=== PATIENT | female | born 1930 | race Hispanic/Latino ===

== ENCOUNTER 2018-05-05 08:29 | Inpatient (IN) | payer MEDICARE, BC ==
[2018-05-05 08:52] VITALS: BMI 24.1
[2018-05-05 10:28] LABS: BASO # 0.01 K/mm3 (0.0-2.0); BASO % 0.1 % (0.0-3.0); GRAN # 14.46 (1.4-6.5); GRAN % 90.4 % (50.0-68.0); HEMOGLOBIN 10.3 g/dL (12.0-16.0); LYMPH # 0.7 (1.2-3.4); LYMPH % 4.6 % (22.0-35.0); MEAN CELL VOLUME 86.2 fl (80.0-105.0); MEAN CORPUSCULAR HEMOGLOBIN 29.7 pg (25.0-35.0); MEAN CORPUSCULAR HGB CONC 34.4 g/dl (31.0-37.0); MONO # 0.8 (0.1-0.6); MONO % 4.9 % (1.0-6.0); PLATELET COUNT 203 10^3/uL (120.0-450.0); RBC 3.47 10^6/uL (3.5-6.1); RED CELL DISTRIBUTION WIDTH 13.9 % (11.5-14.5)
[2018-05-05 10:39] LABS: ALB/GLOB RATIO 1.1 (1.1-1.8); ALBUMIN 3.7 g/dL (3.0-4.8); ALT/SGPT 25 U/L (7-56); AST/SGOT 38 U/L (14-36); BLOOD UREA NITROGEN 26 mg/dL (7-21); CALCIUM 9.1 mg/dL (8.4-10.5); GFR AFRICAN-AMERICAN > 60; GFR NON-AFRICAN AMERICAN > 60; LIPASE 24 U/L (23-300)
[2018-05-05 10:53] LABS: LYMPHOCYTE 5 % (22.0-35.0); MONOCYTE 6 % (1.0-6.0); NEUTROPHIL 89 % (50.0-70.0)
[2018-05-05 10:54] LABS: PLATELET ESTIMATE NORMAL (NORMAL)
--- NOTE | 2018-05-05 11:16 | RAD ---
HISTORY: pneumonia COMPARISON: 08/20/2016. FINDINGS: LUNGS: There are low lung volumes. PLEURA: There is a small left pleural effusion, no pneumothorax apparent. CARDIOVASCULAR: There is moderate cardiomegaly. 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 VISUALIZED UPPER ABDOMEN: Normal. OTHER FINDINGS: None. IMPRESSION: Moderate cardiomegaly and small left pleural effusion. Left lower lobe airspace disease cannot be excluded. Follow-up is advised. Low lung volumes may be related to poor inspiratory effort.
[2018-05-05] MEDS ORDERED: Iohexol 350 MG/100 ML VIAL ONE (11:20)
--- NOTE | 2018-05-05 11:51 | CT ---
PROCEDURE: CT HEAD WITHOUT CONTRAST. HISTORY: Altered mental status COMPARISON: 09/30/2015. TECHNIQUE: Axial computed tomography images were obtained through the head/brain without intravenous contrast. Radiation dose: Total exam DLP = 950.41 mGy-cm. This CT exam was performed using one or more of the following dose reduction techniques: Automated exposure control, adjustment of the mA and/or kV according to patient size, and/or use of iterative reconstruction technique. FINDINGS: HEMORRHAGE: No intracranial hemorrhage. BRAIN: There are moderate chronic microangiopathic changes. There is no mass, mass effect or abnormal extra-axial fluid collection. There are coarse atherosclerotic calcifications in the cavernous carotid arteries. VENTRICLES: There is mild age-related global parenchymal volume loss and proportionate enlargement of the ventricles and cortical sulci. CALVARIUM: The skull base and calvarium are normal. PARANASAL SINUSES: Predominantly clear. MASTOID AIR CELLS: Predominantly clear. OTHER FINDINGS: None. IMPRESSION: No acute intracranial abnormality. Moderate chronic microangiopathic changes and moderate age-related global parenchymal volume loss.
--- NOTE | 2018-05-05 11:58 | ED PDOC ---
Arrival/HPI - General Chief Complaint: Abdominal Pain Time Seen by Provider: 05/05/18 09:21 Past Medical History - Infectious Disease Hx of Infectious Diseases: None - Tetanus Immunization Tetanus Immunization: Unknown - Cardiac Hx Cardiac Disorders: Yes Hx Hypertension: Yes - Pulmonary Hx Respiratory Disorders: No - Neurological Hx Neurological Disorder: Yes Hx Dementia: Yes - HEENT Hx HEENT Disorder: No - Renal Hx Renal Disorder: No - Endocrine/Metabolic Hx Endocrine Disorders: Yes Hx Diabetes Mellitus Type 2: Yes - Hematological/Oncological Hx Blood Disorders: No - Integumentary Hx Dermatological Disorder: No - Musculoskeletal/Rheumatological Hx Musculoskeletal Disorders: Yes Hx Falls: Yes Hx Unsteady Gait: Yes - Gastrointestinal Hx Gastrointestinal Disorders: No - Genitourinary/Gynecological Hx Genitourinary Disorders: Yes Hx Incontinence: Yes - Psychiatric Hx Psychophysiologic Disorder: No Hx Substance Use: No - Surgical History Other/Comment: left hip surg. - Anesthesia Hx Anesthesia Reactions: No Hx Malignant Hyperthermia: No - Suicidal Assessment Feels Threatened In Home Enviroment: No Family/Social History Family/Social History: No Known Family HX Smoking Status: Never Smoked Hx Alcohol Use: No Hx Substance Use: No Hx Substance Use Treatment: No Allergies/Home Meds Allergies/Adverse Reactions: Allergies Tetanus Vaccines and Toxoid Adverse Reaction (Verified 05/05/18 08:52) ITCHING Home Medications: Home Meds Medication Instructions Recorded Confirmed Metformin HCl [Glucophage] 500 mg PO BID 08/20/16 05/05/18 Amlodipine Besylate/Benazepril 1 cap PO DAILY 08/21/16 05/05/18 [Amlodipine-Benazepril 2.5-10] Physical Exam Vital Signs Temp Pulse Resp BP Pulse Ox 05/05/18 17:35 100.1 F H 83 19 119/78 98 05/05/18 15:27 101.0 F H 05/05/18 14:18 101.0 F H 05/05/18 10:38 100.5 F H 05/05/18 09:57 99.0 F 80 18 117/44 L 93 L Medical Decision Making ED Course and Treatment: 05/05/18 11:57 i discussed with the daughter prior to CT with regard to importance of IV contrast and it was agreed to proceed with IV contrast. 05/05/18 18:03 late note: pain meications were refused by the daughter despite offering pain medications. throughout the Emergency department course the patient did not appear in distress and only intermittenly exhibiting she was in pain at brief moments. the daughter, throughout the Emergency department course, was frequently disruptive to care plan and refusing tests at times. daughter was informed of all diagnostic data and plan. 05/05/18 18:08 see resident note for further details - Lab Interpretations Lab Results: 05/05/18 10:20 05/05/18 10:20 Lab Results 05/05/18 10:20: Sodium 149 H, Potassium 3.0 L, Chloride 110 H, Carbon Dioxide 27 , Anion Gap 15, BUN 26 H, Creatinine 0.7, Est GFR ( Amer) > 60, Est GFR ( Non-Af Amer) > 60, Random Glucose 233 H, Calcium 9.1, Magnesium 1.9, Total Bilirubin 1.4 H, AST 38 H, ALT 25, Alkaline Phosphatase 116, Total Protein 7.2, Albumin 3.7, Globulin 3.5, Albumin/Globulin Ratio 1.1, Lipase 24 05/05/18 10:20: WBC 16.0 H D, RBC 3.47 L, Hgb 10.3 L, Hct 29.9 L, MCV 86.2, MCH 29.7, MCHC 34.4, RDW 13.9, Plt Count 203, MPV 9.0, Gran % 90.4 H, Lymph % (Auto ) 4.6 L, Baxter % (Auto) 4.9, Eos % (Auto) 0.0 L, Baso % (Auto) 0.1, Gran # 14.46 H, Lymph # (Auto) 0.7 L, [place] # (Auto) 0.8 H, Eos # (Auto) 0.0, Baso # (Auto) 0.01, Neutrophils % (Manual) 89 H, Lymphocytes % (Manual) 5 L, Monocytes % ( Manual) 6, Platelet Evaluation Normal - RAD Interpretation Radiology Orders: 05/05/18 10:23 HEAD W/O CONTRAST [CT] Stat 05/05/18 10:34 X-RAY [CHEST PORTABLE] [RAD] Stat 05/05/18 10:35 ABDOMEN & PELVIS [ABD & PELVIS IV CONTRAST ONLY] [CT] Stat 05/05/18 12:24 FEMUR MIN 2 VIEWS RT [RAD] Stat 05/05/18 13:12 LS SPINE AP/LAT [RAD] Stat 05/05/18 13:13 THORACIC SPINE [DORSAL (THORACIC) SPINE] [RAD] Stat - Medication Orders Current Medication Orders: Acetaminophen (Tylenol 650 Mg Supp) 650 mg RC Q4H PRN PRN Reason: Fever >100.4 F Heparin Sodium (Porcine) (Heparin) 5,000 units SC Q12 MIHAI PRN Reason: Protocol Lactated Ringer's (Lactated Ringer's) 1,000 mls @ 100 mls/hr IV .Q10H MIHAI Last Admin: 05/05/18 16:48 Dose: 100 mls/hr eMAR Start Stop Document 05/05/18 16:48 [email or web address] (Rec: 05/05/18 16:48 [email or web address] [id number]) Intravenous Solution Start Date 05/05/18 Start Time 16:48 Azithromycin (Zithromax 500mg In Ns) 500 mg in 250 mls @ 167 mls/hr IVPB DAILY MIHAI PRN Reason: Protocol Potassium Chloride (Potassium Chloride 10 Meq/100 Ml) 10 meq in 100 mls @ 50 mls/hr IVPB Q2H MIHAI Stop: 05/05/18 23:59 Last Admin: 05/05/18 17:31 Dose: 50 mls/hr eMAR Start Stop Document 05/05/18 17:31 [email or web address] (Rec: 05/05/18 17:31 [email or web address] [id number]) Intravenous Solution Start Date 05/05/18 Start Time 17:31 End Date 05/05/18 Insulin Human Regular (Humulin R Low) 0 units SC ACHS MIHAI PRN Reason: Protocol Last Admin: 05/05/18 17:18 Dose: 2 units Comments: fs 206 MAR Blood Glucose Document 05/05/18 17:18 [email or web address] (Rec: 05/05/18 17:23 [email or web address] [id number]) Blood Glucose Finger Stick Blood Glucose (70-120) 206 Subcutaneous Administrations Document 05/05/18 17:18 [email or web address] (Rec: 05/05/18 17:23 [email or web address] [id number]) Injection Site MAR Injection Site Left Abdomen Charges for Administration # of Subcutaneous Administrations 1 Pantoprazole Sodium (Protonix Inj) 40 mg IVP DAILY MIHAI Discontinued Medications Acetaminophen (Tylenol 650 Mg Supp) 650 mg RC STAT STA Stop: 05/05/18 14:21 Last Admin: 05/05/18 15:27 Dose: 650 mg MAR Pain/Vitals Document 05/05/18 15:27 [email or web address] (Rec: 05/05/18 15:27 [email or web address] [id number]) Vitals Temperature (97.6 F-99.6 F) 101.0 F Temperature Source Rectal Sodium Chloride (Sodium Chloride 0.9%) 1,000 mls @ 999 mls/hr IV .Q1H1M STA Stop: 05/05/18 13:53 Last Admin: 05/05/18 15:26 Dose: 999 mls/hr eMAR Start Stop Document 05/05/18 15:26 [email or web address] (Rec: 05/05/18 15:26 [email or web address] [id number]) Intravenous Solution Start Date 05/05/18 Start Time 15:26 End Date 05/05/18 Ceftriaxone Sodium (Rocephin 1 Gram Ivpb) 1 gm in 100 mls @ 100 mls/hr IVPB STAT STA PRN Reason: Protocol Stop: 05/05/18 15:14 Last Admin: 05/05/18 15:26 Dose: 100 mls/hr eMAR Start Stop Document 05/05/18 15:26 [email or web address] (Rec: 05/05/18 15:26 [email or web address] [id number]) Intravenous Solution Start Date 05/05/18 Start Time 15:26 Disposition/Present on Arrival - Present on Arrival Any Indicators Present on Arrival: No History of DVT/PE: No History of Uncontrolled Diabetes: No Urinary Catheter: No History of Decub. Ulcer: No History Surgical Site Infection Following: None - Disposition Have Diagnosis and Disposition been Completed?: Yes Diagnosis: Fever, Leukocytosis, Femur fracture, right, Compression fracture, Cholelithiases Disposition: HOSPITALIZED Disposition Time: 18:07 Patient Problems: Current Active Problems Problem Status Onset Cholelithiases Acute Compression fracture Acute Femur fracture, right Acute Fever Acute Leukocytosis Acute Condition: STABLE
--- NOTE | 2018-05-05 12:30 | ED PDOC ---
Arrival/HPI - History of Present Illness Symptom Onset: Sudden Symptom Course: Unchanged - General Chief Complaint: Abdominal Pain Time Seen by Provider: 05/05/18 09:21 - History of Present Illness Narrative History of Present Illness (Text): 87 year old female presents with abdominal pain that started Wednesday. She is an elderly women with dementia who was not able to provide the history. History was provided by her daughter. Her daughter reports that patient was at baseline this past , which is AAOx1 but responsive to people around her. Wednesday, patient started to complain of abdominal pain and her right leg was positioned in an awkward position. Patient cannot converse or follow commands. 05/05/18 12:36 (Ele Cordova) Past Medical History - Provider Review Nursing Documentation Reviewed: Yes - Infectious Disease Hx of Infectious Diseases: None - Tetanus Immunization Tetanus Immunization: Unknown - Cardiac Hx Cardiac Disorders: Yes Hx Hypertension: Yes - Pulmonary Hx Respiratory Disorders: No - Neurological Hx Neurological Disorder: Yes Hx Dementia: Yes - HEENT Hx HEENT Disorder: No - Renal Hx Renal Disorder: No - Endocrine/Metabolic Hx Endocrine Disorders: Yes Hx Diabetes Mellitus Type 2: Yes - Hematological/Oncological Hx Blood Disorders: No - Integumentary Hx Dermatological Disorder: No - Musculoskeletal/Rheumatological Hx Musculoskeletal Disorders: Yes Hx Falls: Yes Hx Unsteady Gait: Yes - Gastrointestinal Hx Gastrointestinal Disorders: No - Genitourinary/Gynecological Hx Genitourinary Disorders: Yes Hx Incontinence: Yes - Psychiatric Hx Psychophysiologic Disorder: No Hx Substance Use: No - Surgical History Other/Comment: left hip surg. - Anesthesia Hx Anesthesia Reactions: No Hx Malignant Hyperthermia: No - Suicidal Assessment Feels Threatened In Home Enviroment: No Family/Social History - Physician Review Nursing Documentation Reviewed: Yes Family/Social History: Unknown Family HX Smoking Status: Never Smoked Hx Alcohol Use: No Hx Substance Use: No Hx Substance Use Treatment: No Allergies/Home Meds Allergies/Adverse Reactions: Allergies Tetanus Vaccines and Toxoid Adverse Reaction (Verified 05/05/18 08:52) ITCHING Home Medications: Home Meds Medication Instructions Recorded Confirmed Metformin HCl [Glucophage] 500 mg PO BID 08/20/16 08/20/16 Amlodipine Besylate/Benazepril 1 cap PO DAILY 08/21/16 08/21/16 [Amlodipine-Benazepril 2.5-10] Review of Systems - Review of Systems Systems not reviewed;Unavailable: Dementia Physical Exam - Physical Exam Physical Exam Limitations: Altered Mental Status, Uncooperative Temperature: Febrile Blood Pressure: Normal Pulse: Regular Respiratory Rate: Normal Appearance: Positive for: Ill-Appearing, Uncomfortable Pain Distress: Moderate Mental Status: Positive for: Confused, Agitated - Systems Exam Head: Present: Atraumatic Pupils: Present: PERRL Nose (External): Present: Atraumatic Respiratory/Chest: Present: Clear to Auscultation Cardiovascular: Present: Regular Rate and Rhythm, Normal S1, S2 Abdomen: Present: Tenderness Upper Extremity: No: Normal ROM (stiff upper extremities) Lower Extremity: No: Normal ROM (lower extremities are stiff. right femur is positioned inward) Neurological: Present: CN II-XII Intact. No: Speech Normal Skin: Present: Warm, Dry Vital Signs Temp Pulse Resp BP Pulse Ox 05/05/18 15:27 101.0 F H 05/05/18 14:18 101.0 F H 05/05/18 10:38 100.5 F H 05/05/18 09:57 99.0 F 80 18 117/44 L 93 L Medical Decision Making ED Course and Treatment: 05/05/18 14:13 admti accepted by hospitalist, patient to be admitted for possible traumatic sacrum fracture. patient found to be febrile and sepsis workup initiated. it has been extremely difficult getting a urine sample in the Emergency department and the daughter at bedside has even refused straight catheter at one point but finally agreed to proceed with straight cath. Despite difficulty obtaining urine , it may be best to empirically tx for suspected UTI, especially in light of fever and leukocytosis. 05/05/18 14:[address] Jacobsen for consult and will see patient at bedside. (Sulaiman Terrazas) Impression: 87 year old female presents with abdominal pain for the past 4 days. Assessment: Pneumonia vs. UTI vs. diverticulitis vs. other etiology of infection. Possible hip fracture Plan: CXR: Moderate cardiomegaly and small left pleural effusion. Left lower lobe airspace disease cannot be excluded. Follow-up is advised. Low lung volumes may be related to poor inspiratory effort. Femur X ray 2 views: Head CT: No acute intracranial abnormality. Moderate chronic microangiopathic changes and moderate age-related global parenchymal volume loss. Abdominal CT: 1. Bilateral sacral ala fractures are identified with presacral edema. 2. No bowel or urinary tract obstruction, free intrarenal gas or ascites. 3. Cholelithiasis. 4. Bilateral renal cysts appear benign. CBC: Hgb: 10.3 Hct: 29.9 CMP: NA: 149, K: 3.0: will replete with 50mg IVP Potassium Blood culture: Urine culture: Patient will be admitted to Dr. Wolf's service. 05/05/18 12:49 05/05/18 12:50 05/05/18 13:01 05/05/18 15:53 (Ele Cordova) - Lab Interpretations Lab Results: 05/05/18 10:20 05/05/18 10:20 Lab Results 05/05/18 10:20: Sodium 149 H, Potassium 3.0 L, Chloride 110 H, Carbon Dioxide 27 , Anion Gap 15, BUN 26 H, Creatinine 0.7, Est GFR ( Amer) > 60, Est GFR ( Non-Af Amer) > 60, Random Glucose 233 H, Calcium 9.1, Magnesium 1.9, Total Bilirubin 1.4 H, AST 38 H, ALT 25, Alkaline Phosphatase 116, Total Protein 7.2, Albumin 3.7, Globulin 3.5, Albumin/Globulin Ratio 1.1, Lipase 24 05/05/18 10:20: WBC 16.0 H D, RBC 3.47 L, Hgb 10.3 L, Hct 29.9 L, MCV 86.2, MCH 29.7, MCHC 34.4, RDW 13.9, Plt Count 203, MPV 9.0, Gran % 90.4 H, Lymph % (Auto ) 4.6 L, [place] % (Auto) 4.9, Eos % (Auto) 0.0 L, Baso % (Auto) 0.1, Gran # 14.46 H, Lymph # (Auto) 0.7 L, [place] # (Auto) 0.8 H, Eos # (Auto) 0.0, Baso # (Auto) 0.01, Neutrophils % (Manual) 89 H, Lymphocytes % (Manual) 5 L, Monocytes % ( Manual) 6, Platelet Evaluation Normal - RAD Interpretation Radiology Orders: 05/05/18 10:23 HEAD W/O CONTRAST [CT] Stat 05/05/18 10:34 X-RAY [CHEST PORTABLE] [RAD] Stat 05/05/18 10:35 ABDOMEN & PELVIS [ABD & PELVIS IV CONTRAST ONLY] [CT] Stat 05/05/18 12:24 FEMUR MIN 2 VIEWS RT [RAD] Stat 05/05/18 13:12 LS SPINE AP/LAT [RAD] Stat 05/05/18 13:13 THORACIC SPINE [DORSAL (THORACIC) SPINE] [RAD] Stat - Medication Orders Current Medication Orders: Acetaminophen (Tylenol 650 Mg Supp) 650 mg RC Q4H PRN PRN Reason: Fever >100.4 F Heparin Sodium (Porcine) (Heparin) 5,000 units SC Q12 MIHAI PRN Reason: Protocol Lactated Ringer's (Lactated Ringer's) 1,000 mls @ 100 mls/hr IV .Q10H MIHAI Azithromycin (Zithromax 500mg In Ns) 500 mg in 250 mls @ 167 mls/hr IVPB DAILY MIHAI PRN Reason: Protocol Insulin Human Regular (Humulin R Low) 0 units SC ACHS MIHAI PRN Reason: Protocol Pantoprazole Sodium (Protonix Inj) 40 mg IVP DAILY MIHAI Discontinued Medications Acetaminophen (Tylenol 650 Mg Supp) 650 mg RC STAT STA Stop: 05/05/18 14:21 Last Admin: 05/05/18 15:27 Dose: 650 mg MAR Pain/Vitals Document 05/05/18 15:27 [email or web address] (Rec: 05/05/18 15:27 [email or web address] [id number]) Vitals Temperature (97.6 F-99.6 F) 101.0 F Temperature Source Rectal Sodium Chloride (Sodium Chloride 0.9%) 1,000 mls @ 999 mls/hr IV .Q1H1M STA Stop: 05/05/18 13:53 Last Admin: 05/05/18 15:26 Dose: 999 mls/hr eMAR Start Stop Document 05/05/18 15:26 [email or web address] (Rec: 05/05/18 15:26 [email or web address] [id number]) Intravenous Solution Start Date 05/05/18 Start Time 15:26 End Date 05/05/18 Ceftriaxone Sodium (Rocephin 1 Gram Ivpb) 1 gm in 100 mls @ 100 mls/hr IVPB STAT STA PRN Reason: Protocol Stop: 05/05/18 15:14 Last Admin: 05/05/18 15:26 Dose: 100 mls/hr eMAR Start Stop Document 05/05/18 15:26 [email or web address] (Rec: 05/05/18 15:26 [email or web address] [id number]) Intravenous Solution Start Date 05/05/18 Start Time 15:26 - PA / MARINE PHOTOGRAPHER / Resident Statement / has reviewed & agrees with the documentation as recorded. / has examined the patient and agrees with the treatment plan. Disposition/Present on Arrival - Present on Arrival Any Indicators Present on Arrival: No History of DVT/PE: No History of Uncontrolled Diabetes: No Urinary Catheter: No History of Decub. Ulcer: No History Surgical Site Infection Following: None - Disposition Have Diagnosis and Disposition been Completed?: Yes Disposition Time: 15:53 Patient Plan: Admission - Disposition Diagnosis: Infection Patient Problems: Current Active Problems Problem Status Onset Infection Acute Condition: STABLE
--- NOTE | 2018-05-05 12:52 | CT ---
PROCEDURE: CT Abdomen and Pelvis with contrast HISTORY: pain COMPARISON: Abdomen pelvis CT with contrast 09/30/2015. TECHNIQUE: Contrast dose: Omnipaque 350, 100 cc Radiation dose: Total exam DLP = 686.09 mGy-cm. This CT exam was performed using one or more of the following dose reduction techniques: Automated exposure control, adjustment of the mA and/or kV according to patient size, and/or use of iterative reconstruction technique. FINDINGS: History motion degrades quality this examination including lung bases through abdomen segments. Cardiomegaly is reiterated. Trace pericardial thickening or effusion evident. No pleural effusion bilaterally. [id number] hiatal hernia reiterated. LOWER THORAX: Unremarkable. LIVER: Unremarkable. No gross lesion or ductal dilatation. GALLBLADDER AND BILE DUCTS: Cholelithiasis with gallbladder otherwise unremarkable. PANCREAS: Unremarkable. No gross lesion or ductal dilatation. SPLEEN: Unremarkable. ADRENALS: Unremarkable. No mass. KIDNEYS AND URETERS: No obstructive uropathy or definite solid enhancing mass. Bilateral renal cysts are identified with one in each kidney. 1.8 cm cyst is seen in the midpole left kidney with a 2.4 cm cyst at the lower pole right kidney. VASCULATURE: Unremarkable. No aortic aneurysm. BOWEL: Stomach is collapsed and not well evaluated. No bowel obstruction appreciable. Moderate retained fecal material is seen at the proximal half of the colon. With the large-bowel otherwise collapse. APPENDIX: Normal appendix. PERITONEUM: Unremarkable. No free fluid. No free air. LYMPH NODES: Unremarkable. No enlarged lymph nodes. BLADDER: Unremarkable. REPRODUCTIVE: Unremarkable. BONES: Bilateral sacral ala fractures were advanced than those that would be expected for insufficiency fractures. Mild presacral edema is related. Diffuse osteopenia suggests advanced osteoporosis which may make the patient prone to fractures. OTHER FINDINGS: None. IMPRESSION: 1. Bilateral sacral ala fractures are identified with presacral edema. 2. No bowel or urinary tract obstruction, free intrarenal gas or ascites. 3. Cholelithiasis. 4. Bilateral renal cysts appear benign.
[2018-05-05] MEDS ORDERED: Sodium Chloride 0.9% 1,000 ML IV STA (12:53)
[2018-05-05] MEDS ORDERED: cefTRIAXone 1 gm 1 GM/100 ML BAG IVPB STA (14:15)
--- NOTE | 2018-05-05 14:18 | RAD ---
HISTORY: Back pain COMPARISON: No prior. FINDINGS: BONES: There is diffuse bone demineralization. Bone alignment is normal. No acute fracture or bone destruction. DISC SPACES: Multilevel degenerative changes with anterior osteophytes and reduced disc heights. SOFT TISSUES: Normal. OTHER FINDINGS: None. IMPRESSION: Severe diffuse bone demineralization. No acute fracture.
--- NOTE | 2018-05-05 14:18 | RAD ---
PROCEDURE: Radiographs of the Lumbar Spine. HISTORY: pain COMPARISON: No prior. FINDINGS: BONES: There is grade 1 anterior listhesis of L4 on L5. There is severe diffuse bone demineralization. There are multiple age indeterminate osteoporotic compression fracture deformities in the lumbar spine, worse at L4. DISC SPACES: There is multilevel degenerative disc disease worse at L5-S1. OTHER FINDINGS: None. 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 Multilevel degenerative disc disease and grade 1 anterior listhesis of L4 on L5
--- NOTE | 2018-05-05 14:24 | RAD ---
PROCEDURE: Right Femur Radiographs. HISTORY: Fracture COMPARISON: None. TECHNIQUE: AP and Lateral Radiographs of the right femur. FINDINGS: FEMUR: There is severe diffuse bone demineralization. There is no acute displaced fracture in the femoral shaft. Evaluation of the femoral condyles is significantly limited due to patient positioning however there appears to be comminuted fracture in the lateral femoral condyles. Status post total right hip arthroplasty. SOFT TISSUES: Normal. OTHER FINDINGS: None. IMPRESSION: Limited portable examination due to patient positioning. Evaluation of the femoral condyle is significantly limited, allowing for this question of comminuted fracture in the lateral femoral condyle. No acute fracture in the femoral shaft. Status post total right hip arthroplasty.
[2018-05-05 14:52] LABS: URINE BILIRUBIN NEGATIVE (NEGATIVE); URINE BLOOD MODERATE (NEGATIVE); URINE GLUCOSE (UA) 100 mg/dL (NEGATIVE); URINE LEUKOCYTE ESTERASE NEGATIVE Leu/uL (NEGATIVE); URINE PROTEIN 100 mg/dL (<30 mg/dL); URINE UROBILINOGEN 0.2 E.U./dL (<1 E.U./dL)
[2018-05-05 14:57] LABS: URINE APPEARANCE CLEAR (CLEAR); URINE COLOR YELLOW (YELLOW)
[2018-05-05 15:00] LABS: URINE BACTERIA FEW (NEG); URINE WBC 0 - 2 /hpf (0-6)
[2018-05-05] MEDS ORDERED: Sodium Chloride 0.9% 1,000 ML IV SCH (15:45)
[2018-05-05] MEDS: Lactated Ringer's 1,000 ML IV SCH (16:48)
[2018-05-05] MEDS: Insulin Reg-LOW-Coverage SC SCH ×2 (17:18→23:05)
[2018-05-05] MEDS ORDERED: Insulin Regular 1 UNITS/0.01 ML ML ONE (17:21)
--- NOTE | 2018-05-05 19:21 | CP.PCM.HP ---
<JorgeMax - Last Filed: 05/05/18 20:45> History of Present Illness - History of Present Illness History of Present Illness: Max Krishnan DO PGY1 - IM RESIDENT - ADMISSION H&P This patient is a 87F presenting from private home w/ a PMH significant for dementia, HTN, DM, Sacral Decubitus Ulcer, Hx Falls, and MVP. Patient is a poor historian and HPI was supplemented by daughter at bedside. Pt. presented to [facility] ED today w/ CC of AMS from baseline, as well as abdominal pain. Patient's daughter stated changes in baseline began on Wednesday and progressed until yesterday. Daughter reports patient is normally AAOx1 however over the past 3 days patient has been less responsive with decreased appetite. Daughter could not recall any precipitating event however did recall that pt. had mechanical fall 2weeks ago w/o LOC. Daughter noticed no acute changes in patient's behavior at that time. Daughter reported subjective fevers at home w/ temp of 99. Daughter also voiced that patient has recently been exhibiting strange posturingof RLE as well as some shivering. In ED: Pt was found to be febrile w/ temperature 100.5; leukocytosis; CXR showed small pleural effusion of Left Lower Lobe. Subsequently sepsis workup was initiated, blood cx and urine cx initiated. CTAP revealed BL sacral ala fx; and cholelithiasis; orthopedic surgery was consulted. Labs showed Na+ 149; K+ 3.0; 50mg IVP K+ admin Pt was seen in ED at bedside this afternoon with pt's daughter present. Pt unable to answer ROS due to waxing/waning alertness and moderate distress. Present on Admission - Present on Admission Any Indicators Present on Admission: Yes History of DVT/PE: No History of Uncontrolled Diabetes: No Urinary Catheter: No Decubitus Ulcer Present: Yes (x2 stage 1 ulcer; erythematous w/o skin break on L thigh and gluteal cleft) Review of Systems - Review of Systems Systems not reviewed;Unavailable: Altered Mental Status Past Patient History - Infectious Disease Hx of Infectious Diseases: None - Tetanus Immunizations Tetanus Immunization: Unknown - Past Social History Smoking Status: Never Smoked - CARDIAC Hx Cardiac Disorders: Yes Hx Hypertension: Yes Hx Mitral Valve Prolapse: Yes - PULMONARY Hx Respiratory Disorders: No - NEUROLOGICAL Hx Neurological Disorder: Yes Hx Dementia: Yes - HEENT Hx HEENT Problems: No - RENAL Hx Chronic Kidney Disease: No - ENDOCRINE/METABOLIC Hx Endocrine Disorders: Yes Hx Diabetes Mellitus Type 2: Yes - HEMATOLOGICAL/ONCOLOGICAL Hx Blood Disorders: No - INTEGUMENTARY Hx Dermatological Problems: No - MUSCULOSKELETAL/RHEUMATOLOGICAL Hx Musculoskeletal Disorders: Yes Hx Falls: Yes Hx Unsteady Gait: Yes - GASTROINTESTINAL Hx Gastrointestinal Disorders: No - GENITOURINARY/GYNECOLOGICAL Hx Genitourinary Disorders: Yes Hx Incontinence: Yes - PSYCHIATRIC Hx Psychophysiologic Disorder: No Hx Substance Use: No - SURGICAL HISTORY Other/Comment: left hip surg. - ANESTHESIA Hx Anesthesia Reactions: No Hx Malignant Hyperthermia: No Meds Allergies/Adverse Reactions: Allergies Allergy/AdvReac Type Severity Reaction Status Date / Time Tetanus Vaccines and Toxoid AdvReac ITCHING Verified 05/05/18 08:52 Physical Exam - Constitutional Appears: In Acute Distress, Confused - Head Exam Head Exam: ATRAUMATIC, NORMOCEPHALIC - Eye Exam Eye Exam: Normal appearance, PERRL. absent: Scleral icterus - ENT Exam ENT Exam: Mucous Membranes Dry Additional comments: dentures - Respiratory Exam Respiratory Exam: Decreased Breath Sounds. absent: Rhonchi, Wheezes, Respiratory Distress - Cardiovascular Exam Cardiovascular Exam: RRR, Systolic Murmur (Mitral post ) - GI/Abdominal Exam GI & Abdominal Exam: Normal Bowel Sounds Additional comments: Generalized abdominal tenderness; nonspecific guarding; more significant in RLQ / LLQ - Back Exam Additional comments: RLE and LLE thigh tender to palpation. Well healing stage 1 pressure ulcer appreciated on LLE and Sacral cleft - Neurological Exam Additional comments: Pt appearing moderately distressed; waking and waning consciousness/ alertness during interview. Results - Vital Signs Recent Vital Signs: Last Vital Signs Temp 100.1 F H 05/05/18 17:35 Pulse 78 05/05/18 17:50 Resp 18 05/05/18 17:50 BP 119/78 05/05/18 17:35 Pulse Ox 94 L 05/05/18 17:50 - Labs Result Diagrams: 05/05/18 10:20 05/05/18 10:20 Labs: Laboratory Results - last 24 hr 05/05/18 05/05/18 05/05/18 14:22 17:08 18:37 Lactic Acid 1.4 TSH 3rd Generation 1.75 Urine Color Yellow Urine Appearance Clear Urine pH 6.0 Ur Specific [place] 1.020 Urine Protein 100 H Urine Glucose (UA) 100 H Urine Ketones Negative Urine Blood Moderate H Urine Nitrate Negative Urine Bilirubin Negative Urine Urobilinogen 0.2 Ur Leukocyte Esterase Negative Urine RBC 10 - 15 Urine WBC 0 - 2 Ur Epithelial Cells 4 - 5 Urine Bacteria Few Assessment & Plan - Assessment and Plan (Free Text) Assessment: This patient is a 87F presenting from private home w/ a PMH significant for dementia, HTN, DM, Sacral Decubitus Ulcer, Hx Falls, and MVP. Patient is a poor historian, and altered AAOx1 at baseline. Pt. presented to [facility] ED today w/ CC of AMS from baseline, as well as abdominal pain. Patient's daughter stated reported subjective fevers at home and hx of witnessed mechanical fall. In the ED, pt. febrile w/ leukocytosis, and LLB consolidation on cxr sepsis workup initiated; CTAP reveled incidental BL Sacral Ala fx, orthopedic surgery consulted. Pt. transferred to med-surg. Plan: SEPSIS 24H Tmax 101F w/ leukocytosis 16 CXR w/ Left Lower Lobe pleural effusion Blood Cx pending Urine Cx Pending Procal pending Acetaminophine 650 PRN for Fever LR @ 100 mls/hr Ceftriaxone 1gm given x1 in ED Started Axithromycin 500mg QD AMS Likely 2/2 sepsis vs. mechanical fall vs chronic dementia CT HEAD negative PT Eval pending Bedside Swallow eval pending pt NPO Fall precautions in place Sacral Ala Fx CTAP 7/5 - BL sacral ala fx w/ presacral edema Ortho following; appreciate reccs HTN 24H range: 117-119/44-78 Hold Home Rx Reassess in Am and restart home Rx if necessary DM2 A1C unknown ISS Low Hold home metformin PROPHYLAXIS: Heparin 5000 Q12; PPI IVP DIET: NPO UNTIL SWALLOW EVAL PASSED DISPO: To remain on med surg until medically optimized for discharge Pt is to follow up w/ PMD Dr. Lida Hernandez once discharged Case seen and discussed w/ attending Dr. Maryann KRISHNAN DO- PGY1 IM RESIDENT - PAGER [id number] - Date & Time Date: 05/05/18 Time: 20:47 <Kevyn Wolf - Last Filed: 05/06/18 07:45> Results - Vital Signs Recent Vital Signs: Last Vital Signs Temp 99.3 F 05/05/18 23:11 Pulse 81 05/06/18 05:29 Resp 20 05/05/18 23:11 BP 188/97 H 05/06/18 05:29 Pulse Ox 92 L 05/05/18 23:11 - Labs Result Diagrams: 05/06/18 07:00 05/05/18 10:20 Labs: Laboratory Results - last 24 hr 05/05/18 05/05/18 05/05/18 14:22 17:08 17:08 WBC RBC Hgb Hct MCV MCH MCHC RDW Plt Count MPV Gran % Lymph % (Auto) [place] % (Auto) Eos % (Auto) Baso % (Auto) Gran # Lymph # (Auto) [place] # (Auto) Eos # (Auto) Baso # (Auto) POC Glucose (mg/dL) Lactic Acid Procalcitonin 1.12 H TSH 3rd Generation 1.75 Urine Color Yellow Urine Appearance Clear Urine pH 6.0 Ur Specific [place] 1.020 Urine Protein 100 H Urine Glucose (UA) 100 H Urine Ketones Negative Urine Blood Moderate H Urine Nitrate Negative Urine Bilirubin Negative Urine Urobilinogen 0.2 Ur Leukocyte Esterase Negative Urine RBC 10 - 15 Urine WBC 0 - 2 Ur Epithelial Cells 4 - 5 Urine Bacteria Few 05/05/18 05/05/18 05/06/18 18:37 22:47 06:44 WBC RBC Hgb Hct MCV MCH MCHC RDW Plt Count MPV Gran % Lymph % (Auto) [place] % (Auto) Eos % (Auto) Baso % (Auto) Gran # Lymph # (Auto) [place] # (Auto) Eos # (Auto) Baso # (Auto) POC Glucose (mg/dL) 138 H 155 H Lactic Acid 1.4 Procalcitonin TSH 3rd Generation Urine Color Urine Appearance Urine pH Ur Specific [place] Urine Protein Urine Glucose (UA) Urine Ketones Urine Blood Urine Nitrate Urine Bilirubin Urine Urobilinogen Ur Leukocyte Esterase Urine RBC Urine WBC Ur Epithelial Cells Urine Bacteria 05/06/18 07:00 WBC 13.5 H RBC 3.25 L Hgb 9.6 L Hct 28.3 L MCV 87.1 MCH 29.5 MCHC 33.9 RDW 14.3 Plt Count 226 MPV 9.6 Gran % 84.5 H Lymph % (Auto) 9.8 L [place] % (Auto) 5.5 Eos % (Auto) 0.1 L Baso % (Auto) 0.1 Gran # 11.43 H Lymph # (Auto) 1.3 [place] # (Auto) 0.8 H Eos # (Auto) 0.0 Baso # (Auto) 0.01 POC Glucose (mg/dL) Lactic Acid Procalcitonin TSH 3rd Generation Urine Color Urine Appearance Urine pH Ur Specific [place] Urine Protein Urine Glucose (UA) Urine Ketones Urine Blood Urine Nitrate Urine Bilirubin Urine Urobilinogen Ur Leukocyte Esterase Urine RBC Urine WBC Ur Epithelial Cells Urine Bacteria Attending/Attestation - Attestation I have personally seen and examined this patient.: Yes I have fully participated in the care of the patient.: Yes I have reviewed all pertinent clinical information: Yes Notes (Text): 05/05/18 87 year old female with past medical history of dementia, hypertension and diabetes who was brought in by daughter for abdominal pain, fevers at home and episode of fall at home. In ER she was found to have fever 101, leukocytosis 16. CXR showed possible LLL pneumonia. CT and xray imagings also showed bilateral sacral ala fractures, severe bone demineralization and osteoporotic compression fracture deformities, worse at L4. Orthopedics evaluation is requested. PT evaluation requested as well. Continue with rocephine and azithromycin. Daughter is at bedside and questions were answered. Kevyn Wolf MD Hospitalist.
[2018-05-05] MEDS ORDERED: Pneumococcal 23-Valent Vaccine IM ONE (21:50)
--- NOTE | 2018-05-06 01:59 | CON ---
DATE: 05/05/2018 ORTHOPEDIC CONSULTATION HISTORY OF PRESENT ILLNESS: Ms. Corina Jay is an 87-year-old female who was injured getting up and out of bed by the help of 2 people for a couple of days ago and injured her low back and abdomen, and on examination today, which is approximately 4:30 p.m., she has a flexion contracture of the right knee without any undue swelling as there was a question of a fracture of the lateral femoral condyle, but there is no fracture. She has an intact right hip prosthesis, in good position. She has by history of the abdominal pain what appears to be some constipation and as a bilateral sacral insufficiency fractures that are basically would be nondisplacing, could be ignored to the point where we can get her up out of bed with help of 2 people, that is the important thing. If you only use one person, she is going to stress a part of her body that could easily fracture because she is so osteopenic and she also needs a specialty mattress to avoid bedsores and a pillow splint to between both legs and to protect her feet from bedsores in her knees from touching the contralateral knee, but there is no evidence clinically of her fractured distal femur or knee. Considering of her age, we have to be careful when we mobilize her, because she needs constant supervision and help to get up out of bed in a well-padded chair. She is not a candidate for therapy ambulation, but we have to protect her from bedsores and keep her proteins up and nutrition up and hydration up, and I suggest having her see a prison librarian to see if she has obstipation and need for abdominal evaluation by a prison librarian. We will try to get Dr. Retana on the case, so orthopedically, she has bilateral sacral alar fractures, stable, could be treated conservatively and no evidence of a right knee fracture, treated with pillow splints, protection from bed sores and GI evaluation and get her up out of bed with professional help. Marco Jacobsen DO
[2018-05-06 07:26] LABS: BASO # 0.01 K/mm3 (0.0-2.0); BASO % 0.1 % (0.0-3.0); EOS % 0.1 % (1.5-5.0); GRAN # 11.43 (1.4-6.5); GRAN % 84.5 % (50.0-68.0); HEMOGLOBIN 9.6 g/dL (12.0-16.0); LYMPH # 1.3 (1.2-3.4); LYMPH % 9.8 % (22.0-35.0); MEAN CELL VOLUME 87.1 fl (80.0-105.0); MEAN CORPUSCULAR HEMOGLOBIN 29.5 pg (25.0-35.0); MEAN CORPUSCULAR HGB CONC 33.9 g/dl (31.0-37.0); MEAN PLATELET VOLUME 9.6 fl (7.0-11.0); MONO # 0.8 (0.1-0.6); MONO % 5.5 % (1.0-6.0); RBC 3.25 10^6/uL (3.5-6.1); RED CELL DISTRIBUTION WIDTH 14.3 % (11.5-14.5); WHITE BLOOD COUNT 13.5 10^3/ul (4.5-11.0)
[2018-05-06 08:26] LABS: BLOOD UREA NITROGEN 32 mg/dL (7-21)
[2018-05-06 08:27] LABS: ALB/GLOB RATIO 1.1 (1.1-1.8); ALBUMIN 3.6 g/dL (3.0-4.8); ALT/SGPT 29 U/L (7-56); AST/SGOT 40 U/L (14-36); CALCIUM 8.8 mg/dL (8.4-10.5); GFR AFRICAN-AMERICAN > 60; GFR NON-AFRICAN AMERICAN > 60
[2018-05-06] MEDS: Insulin Reg-LOW-Coverage SC SCH ×3 (08:33→16:24)
--- NOTE | 2018-05-06 09:48 | CT ---
PROCEDURE: CT Chest without contrast HISTORY: r/o pneumonia COMPARISON: None. TECHNIQUE: Contiguous axial images were obtained through the chest without intravenous contrast enhancement. Sagittal and coronal reconstructions were performed. Radiation dose (DLP): 364.34 mGy-cm. This CT exam was performed using one or more of the following dose reduction techniques: Automated exposure control, adjustment of the mA and/or kV according to patient size, and/or use of iterative reconstruction technique. FINDINGS: LUNGS: No infiltrate. No pulmonary mass. No evidence of pneumonia. Evaluation somewhat limited by patient motion artifact. MEDIASTINUM: Unremarkable thoracic aorta. No aneurysm. Cardiomegaly. Mitral annular calcification. Coronary arterial calcification. No pericardial effusion. Main pulmonary artery dilated to a diameter of approximately 3.9 cm. Correlate with any findings concerning for pulmonary arterial hypertension. There are coarse calcifications in the right lobe of the thyroid. Consider correlation with thyroid ultrasound examination. There is a small hiatal hernia. No lymphadenopathy. PLEURA: No pleural fluid. No pneumothorax. BONES: No fracture. No destructive lesion. UPPER ABDOMEN: Nonobstructing small left upper pole renal calculi. Left renal cortical cyst, 1.8 cm. Eleven Hounsfield units. Possible tumefactive sludge in gallbladder lumen. Recommend correlation with ultrasound to exclude neoplasm. OTHER FINDINGS: None. IMPRESSION: No pulmonary infiltrate. Limited examination. Cardiomegaly. Dilated main pulmonary artery. Calcifications in thyroid. Correlate with thyroid ultrasound. Hiatal hernia. Nonobstructing left renal calculi. Possible tumefactive sludge in gallbladder. Correlate with right upper quadrant abdominal ultrasound examination.
[2018-05-06] MEDS ORDERED: Azithromycin 500MG/NS 250ml 500 MG/250 ML BAG IVPB SCH (10:00)
[2018-05-06] MEDS: cefTRIAXone 1 gm 1 GM/100 ML BAG IVPB SCH (11:03)
--- NOTE | 2018-05-06 14:27 | CP.PCM.PN ---
<Max Krishnan - Last Filed: 05/06/18 16:13> Subjective - Date & Time of Evaluation Date of Evaluation: 05/06/18 Time of Evaluation: 14:20 - Subjective Subjective: Max Krishnan D.O. PGY1, Internal Medicine Cma [facility] Lpn, Medicine Progress Note 87 year old female presenting from private home w/ a PMH significant for dementia, HTN, DM, Sacral Decubitus Ulcer, Hx Falls, and MVP who presented w/ AMS, Leukocytosis, and Fever of unknown origin. Pt was seen this AM at bedside this AM; care takers and family present at evaluation. Pt appeared to be less distressed than day prior, more alert than day prior as well, grimacing less. Patient's daughter stated she did not want her mother to have swallow evaluation when patient brought from ED to floor last night and insisted she get started on full diet. Pt's daughter was made aware the risks of aspiration pna if pt started on diet w/o appropriate clearance; Overnight patient HTN 177/93 and 188/97; 10mg apresoline administered. Unable to assess patient's ROS. Objective - Vital Signs/Intake and Output Vital Signs (last 24 hours): Temp Pulse Resp BP Pulse Ox 98.4 F 81 20 188/97 H 96 05/06/18 06:00 05/06/18 06:00 05/06/18 06:00 05/06/18 06:00 05/06/18 06:00 Intake and Output: 05/06/18 05/06/18 06:59 18:59 Intake Total 120 Balance 120 - Medications Medications: Current Medications Acetaminophen (Tylenol 650 Mg Supp) 650 mg RC Q4H PRN PRN Reason: Fever >100.4 F Amlodipine Besylate (Norvasc) 2.5 mg PO DAILY [facility] Heparin Sodium (Porcine) (Heparin) 5,000 units SC Q12 MIHAI PRN Reason: Protocol Last Admin: 05/06/18 11:11 Dose: Not Given Lactated Ringer's (Lactated Ringer's) 1,000 mls @ 100 mls/hr IV .Q10H [facility] Last Admin: 05/05/18 16:48 Dose: 100 mls/hr Azithromycin (Zithromax 500mg In Ns) 500 mg in 250 mls @ 167 mls/hr IVPB DAILY [facility]I PRN Reason: Protocol Last Admin: 05/06/18 10:58 Dose: 167 mls/hr Ceftriaxone Sodium (Rocephin 1 Gram Ivpb) 1 gm in 100 mls @ 100 mls/hr IVPB DAILY [facility]I PRN Reason: Protocol Last Admin: 05/06/18 11:03 Dose: 100 mls/hr Insulin Human Regular (Humulin R Low) 0 units SC ACHS MIHAI PRN Reason: Protocol Last Admin: 05/06/18 12:15 Dose: Not Given Lisinopril (Zestril) 10 mg PO DAILY [facility] Pantoprazole Sodium (Protonix Inj) 40 mg IVP DAILY [facility] Last Admin: 05/06/18 10:59 Dose: 40 mg - Labs Labs: 05/06/18 07:00 05/06/18 07:00 APTT 25.3 Seconds (25.1-36.5) 05/06/18 07:00 - Constitutional Appears: Non-toxic, Chronically Ill - Head Exam Head Exam: ATRAUMATIC, NORMOCEPHALIC - Eye Exam Eye Exam: Normal appearance, PERRL. absent: Scleral icterus - ENT Exam ENT Exam: Mucous Membranes Dry Additional comments: dentures in place - Neck Exam Neck Exam: absent: Lymphadenopathy, Tenderness - Respiratory Exam Respiratory Exam: Decreased Breath Sounds. absent: Rales, Rhonchi, Wheezes, Respiratory Distress - Cardiovascular Exam Cardiovascular Exam: RRR, +S1, +S2, Murmur Additional comments: 3+ mitral post - GI/Abdominal Exam GI & Abdominal Exam: Soft, Normal Bowel Sounds. absent: Distended, Tenderness - Extremities Exam Extremities Exam: absent: Calf Tenderness, Pedal Edema Additional comments: RLE and LLE thigh tender to palpation - Neurological Exam Neurological Exam: Awake Additional comments: Pt AAOx0, responding intermittently to verbal stimuli, spontaneous eye opening. - Skin Skin Exam: Dry, Warm. absent: Intact Additional comments: well healing stage 2 pressure ulcer appreciated on LLE and Sacral cleft Assessment and Plan - Assessment and Plan (Free Text) Assessment: 87 year old female presenting from private home w/ a PMH significant for dementia, HTN, DM, Sacral Decubitus Ulcer, Hx Falls, and MVP who presented w/ AMS, Leukocytosis, and Fever of unknown origin. Plan: 1. Fever of unknown origin SIRS on admission; fever resolved however WBC still elevated CXR w/ Left Lower Lobe pleural effusion CT Chest w/ no acute findings Abd US pending Blood Cx pending UA negative, Urine Cx negative Procal elevated; suggestive of infx etiology Cont Acetaminophine 650 PRN for Fever Cont LR @ 100 mls/hr Cont Axithromycin 500mg QD ID Consulted, recs appreciated GI Consulted, recs appreciated 2. Altered Mental Status Likely delirium 2/2 SIRS vs mechanical fall in the setting of dementia Pt more alert/ active today compared to presentation in ED CT HEAD negative PT Eval ordered, declined by daughter Bedside Swallow attempted this AM however pt unable to participate since NPO for abdominal US Fall precautions in place 3. Sacral Ala Fx CT AP 05/05 - BL sacral ala fx w/ presacral edema Ortho following; appreciate reccs Conservative management at this time 4.HTN Elevated episodes requiring PRN medications overnight Started Zestril 10mg QD Started Amlodipine 2.5 QD 5. DM2 A1C pending Cont RISS Low Hold home metformin DVT/GI Pppx: Heparin 5000 Q12; PPI IVP Dispo: pending results of cultures, still on empiric abx, procal elevated, pt is to follow up w/ PMD Dr. Lida Hernandez once discharged Patient was seen and examined and case was discussed at length with attending Dr. Maryann KRISHNAN DO- PGY1 IM RESIDENT - PAGER [id number] <Kevyn Wolf - Last Filed: 05/07/18 08:35> Objective - Vital Signs/Intake and Output Vital Signs (last 24 hours): Temp Pulse Resp BP Pulse Ox 100 F H 74 18 188/89 H 96 05/06/18 22:37 05/07/18 05:42 05/06/18 22:37 05/07/18 05:42 05/06/18 22:37 Intake and Output: 05/07/18 05/07/18 06:59 18:59 Intake Total 120 Balance 120 - Medications Medications: Current Medications Acetaminophen (Tylenol 650 Mg Supp) 650 mg RC Q4H PRN PRN Reason: Fever >100.4 F Last Admin: 05/06/18 18:44 Dose: 650 mg Amlodipine Besylate (Norvasc) 2.5 mg PO QPM [facility] Heparin Sodium (Porcine) (Heparin) 5,000 units SC Q12 MIHAI PRN Reason: Protocol Last Admin: 05/06/18 22:11 Dose: 5,000 units Hydralazine HCl (Apresoline) 10 mg IVP Q6 PRN PRN Reason: Other Last Admin: 05/07/18 05:42 Dose: 10 mg Lactated Ringer's (Lactated Ringer's) 1,000 mls @ 100 mls/hr IV .Q10H [facility] Last Admin: 05/05/18 16:48 Dose: 100 mls/hr Azithromycin (Zithromax 500mg In Ns) 500 mg in 250 mls @ 167 mls/hr IVPB DAILY [facility] PRN Reason: Protocol Last Admin: 05/06/18 10:58 Dose: 167 mls/hr Ceftriaxone Sodium (Rocephin 1 Gram Ivpb) 1 gm in 100 mls @ 100 mls/hr IVPB DAILY [facility] PRN Reason: Protocol Last Admin: 05/06/18 11:03 Dose: 100 mls/hr Potassium Chloride (Potassium Chloride 10 Meq/100 Ml) 10 meq in 100 mls @ 50 mls/hr IVPB Q2H [facility] Stop: 05/07/18 16:29 Insulin Human Regular (Humulin R Low) 0 units SC ACHS [facility]I PRN Reason: Protocol Last Admin: 05/06/18 16:24 Dose: Not Given Lisinopril (Zestril) 20 mg PO QPM [facility] Last Admin: 05/06/18 18:45 Dose: 20 mg Pantoprazole Sodium (Protonix Inj) 40 mg IVP DAILY [facility] Last Admin: 05/06/18 10:59 Dose: 40 mg - Labs Labs: 05/07/18 06:00 05/07/18 06:00 APTT 25.3 Seconds (25.1-36.5) 05/06/18 07:00 Attending/Attestation - Attestation I have personally seen and examined this patient.: Yes I have fully participated in the care of the patient.: Yes I have reviewed all pertinent clinical information, including history, physical exam and plan: Yes Notes (Text): 05/06/18 87 year old female with past medical history of dementia, hypertension and diabetes who was brought in by daughter for abdominal pain, fevers at home and episode of fall at home. In ER she was found to have fever 101, leukocytosis 16. CXR showed possible LLL pneumonia. CT and xray imagings also showed bilateral sacral ala fractures, severe bone demineralization and osteoporotic compression fracture deformities, worse at L4. Orthopedics evaluation was appreciated who recommended conservative management. Continue with rocephine and azithromycin. CT chest was ordered. Procalcitonin is elevated. Will follow up with ID recommendations. GI is following as well who ordered abdominal ultrasound. Nephrology evaluation was appreciated for hypertension. Daughter is at bedside and questions were answered. Kevyn Wolf MD Hospitalist.
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
--- NOTE | 2018-05-06 17:54 | US ---
HISTORY: gallstones, elelvated lft COMPARISON: None. TECHNIQUE: Sonographic evaluation of the abdomen. FINDINGS: LIVER: Measures 13.2 cm. Increased echogenicity of the liver parenchyma. No mass. No intrahepatic bile duct dilatation. GALLBLADDER: Cholelithiasis and sludge with gallbladder wall thickening. Sonographic Murray's sign was not elicited. COMMON BILE DUCT: Measures 4 mm. No stones. No dilatation. PANCREAS: Small cystic structures measuring 0.6 x 0.2 cm, 0.9 x 0.5 cm and 0.5 x 0.5 cm. No mass. No ductal dilatation. RIGHT KIDNEY: Measures 10.0 x 4.8 x 5.1cm. Normal echogenicity. No calculus, mass, or hydronephrosis. LEFT KIDNEY: Measures 9.1 x 4.3 x 5.2cm. Normal echogenicity. No calculus, mass, or hydronephrosis. SPLEEN: Normal in size and contour. No mass. AORTA: No aneurysmal dilatation. IVC: Unremarkable. OTHER FINDINGS: None. IMPRESSION: Mild hepatic steatosis. Cholelithiasis and sludge with mild gallbladder wall thickening. Sonographic Murray's sign was not elicited. Findings are equivocal for acute cholecystitis. If there is clinical concern for acute cholecystitis, nuclear medicine HIDA scan can be obtained to further evaluate patency of the cystic duct. Small cystic structures in the pancreas. MRCP of the abdomen can be obtained for further evaluation as clinically warranted.
[2018-05-07 06:54] LABS: BASO # 0.01 K/mm3 (0.0-2.0); BASO % 0.1 % (0.0-3.0); EOS % 0.4 % (1.5-5.0); GRAN # 7.56 (1.4-6.5); HEMOGLOBIN 9.4 g/dL (12.0-16.0); LYMPH # 1.2 (1.2-3.4); LYMPH % 12.6 % (22.0-35.0); MONO # 0.8 (0.1-0.6); MONO % 7.9 % (1.0-6.0); RBC 3.24 10^6/uL (3.5-6.1); RED CELL DISTRIBUTION WIDTH 14.3 % (11.5-14.5); WHITE BLOOD COUNT 9.6 10^3/ul (4.5-11.0)
[2018-05-07 07:31] LABS: ALBUMIN 3.3 g/dL (3.0-4.8); ALT/SGPT 23 U/L (7-56); AST/SGOT 32 U/L (14-36); BLOOD UREA NITROGEN 30 mg/dL (7-21); CALCIUM 8.6 mg/dL (8.4-10.5); GFR AFRICAN-AMERICAN > 60; GFR NON-AFRICAN AMERICAN > 60
[2018-05-07] MEDS: Insulin Reg-LOW-Coverage SC SCH ×3 (08:05→17:59)
[2018-05-07] MEDS ORDERED: Potassium Chloride 20 mEq/15 ml LIQ UD PO STA (08:25)
[2018-05-07] MEDS: cefTRIAXone 1 gm 1 GM/100 ML BAG IVPB SCH (10:18)
--- NOTE | 2018-05-07 10:40 | CP.PCM.PN ---
Subjective - Date & Time of Evaluation Date of Evaluation: 05/07/18 Time of Evaluation: 10:39 - Subjective Subjective: History of Present Illness: Nephrology Consultation Note: Assessment: Stable uncontrolled severe HTN ? trigger as acute illness fever ? source Hypokalemia, hypernatremia Anemia b/l renal cysts dementia, hx of sacral decubitus Plan Hypertension control with meds as ordered. increase norvasc to 5 mg and lisinopril to 40 mg and PRN IVP hydralazine continue with hypotonic fluids supplement lytes as needed sec HTN work up with renin/gerri and renal artery doppler. will check Vit D level Dose meds/antibiotics for normal GFR. Glycemic control Further work up/management as per primary team Thanks for allowing me to participate in care of your patient. Will follow patient with you. Please call if any Qs. had d/w family and team Dr Kong Osuna Office: [phone] Chief Complaint; unable. pt came with fever reason for consult: HTN HPI: Pt is a 87 F with hx of hypertension (40+ years) dementia, sacral decubitus presented with complaints of fever and renal consult for HTN management as per daughter BP usually controlled. pt unable to provide any hx ROS: unable to obtain from pt. she is beter as per family 05/06/18; Bp checked by myself Rt arm 180/90 and Left arm 184/92 with family bedside Physical Examination: General Appearance: Comfortable, in no acute respiratory distress, co-operative . Vitals reviewed and noted as below Head; Atraumatic, normocephalic ENT: unable. EYES: Pupils are equal, round and reactive to light accommodation. Sclera is anicteric. Neck; supple no lymphadenopathy, no thyromegaly or bruit Lungs: Normal respiratory rate/effort. Breath sounds bilateral equal and clear anteriorly Heart: Normal rate. s1s2 normal. No rub or gallop. Extremities: no edema. No varicose veins Neurological: Patient is alert, awake and disoriented to person, place and time. has dementia Skin: Warm and dry. Normal turgor. No rash. Palpitation: Normal elasticity for age Abdomen: Abdomen is soft. Bowel sounds +. There is no abdominal tenderness, no guarding/rigidity no organomegaly although exam limited Psych: unable MSK: no joint tenderness or swelling. Digits and nails normal, no deformity : kidney or bladder not palpable Labs/imaging reviewed. Past medical history, past surgical history, family history, social history, allergy reviewed and noted as below Family hx: no hx of CKD. Rest non-contributory renal imaging B/l cysts and adrenals WNL UA 100 protein moderate blood Objective - Vital Signs/Intake and Output Vital Signs (last 24 hours): Temp Pulse Resp BP Pulse Ox 99.4 F 74 20 188/89 H 100 05/07/18 06:00 05/07/18 06:00 05/07/18 06:00 05/07/18 06:00 05/07/18 06:00 Intake and Output: 05/07/18 05/07/18 06:59 18:59 Intake Total 120 Balance 120 - Medications Medications: Current Medications Acetaminophen (Tylenol 650 Mg Supp) 650 mg RC Q4H PRN PRN Reason: Fever >100.4 F Last Admin: 05/06/18 18:44 Dose: 650 mg Amlodipine Besylate (Norvasc) 5 mg PO DAILY [facility] Last Admin: 05/07/18 10:17 Dose: 5 mg Heparin Sodium (Porcine) (Heparin) 5,000 units SC Q12 [facility] PRN Reason: Protocol Last Admin: 05/07/18 09:29 Dose: 5,000 units Hydralazine HCl (Apresoline) 10 mg IVP Q6 PRN PRN Reason: Other Last Admin: 05/07/18 05:42 Dose: 10 mg Lactated Ringer's (Lactated Ringer's) 1,000 mls @ 100 mls/hr IV .Q10H [facility] Last Admin: 05/05/18 16:48 Dose: 100 mls/hr Ceftriaxone Sodium (Rocephin 1 Gram Ivpb) 1 gm in 100 mls @ 100 mls/hr IVPB DAILY [facility] PRN Reason: Protocol Last Admin: 05/07/18 10:18 Dose: 100 mls/hr Potassium Chloride (Potassium Chloride 10 Meq/100 Ml) 10 meq in 100 mls @ 50 mls/hr IVPB Q2H [facility] Stop: 05/07/18 16:29 Last Admin: 05/07/18 09:28 Dose: 50 mls/hr Insulin Human Regular (Humulin R Low) 0 units SC ACHS [facility] PRN Reason: Protocol Last Admin: 05/07/18 08:05 Dose: 1 units Lisinopril (Zestril) 40 mg PO DAILY [facility] Last Admin: 05/07/18 10:15 Dose: 40 mg Pantoprazole Sodium (Protonix Inj) 40 mg IVP DAILY [facility] Last Admin: 05/07/18 09:30 Dose: 40 mg - Labs Labs: 05/07/18 06:00 05/07/18 06:00 APTT 25.3 Seconds (25.1-36.5) 05/06/18 07:00
[2018-05-07] MEDS: Lactated Ringer's 1,000 ML IV SCH (13:11)
--- NOTE | 2018-05-07 15:59 | CON ---
DATE: 05/07/2018 LOCATION: The patient is seen in room 567, bed 1. CHIEF COMPLAINT: Fever x1 day. HISTORY OF PRESENT ILLNESS: This is an 87-year-old female with diabetes, hypertension, Alzheimer's, anxiety, decubitus ulcer, urinary incontinence, who was admitted with diagnosis of fever and dementia. Infectious Disease consultation requested. The patient's youth officer is present, who says that the patient essentially has fevers and does not verbalize well and at this point has been mild short of breath. No cough. No abdominal pain, diarrhea or constipation. REVIEW OF SYSTEMS: Reveals the patient's 12-point review of systems is performed. PAST MEDICAL HISTORY: Significant for anxiety, Alzheimer's dementia and hypertension and diabetes mellitus and urinary incontinence. PAST SURGICAL HISTORY: Significant work ERCP extraction of a stone, hip surgery and back surgery. ALLERGIES: THE PATIENT IS ALLERGIC TO TETANUS AND QUESTIONABLE PENICILLIN. AT ONE TIME, THE PATIENT MAY HAVE HAD A REACTIONS OF CEFTRIAXONE. MEDICATIONS AT HOME: Reveals the patient to have metformin and amlodipine. PHYSICAL EXAMINATION: GENERAL: On exam, the patient is in bed, appearing chronically ill, debilitated, weak. VITAL SIGNS: temperature of 101 and blood pressure is 180/100, respiratory rate of 20 and heart rate of 85. HEENT: Examination of HEENT is unremarkable. NECK: Supple. LUNGS: Have decreased breath sounds. HEART: Normal S1, S2. ABDOMEN: Soft, nontender. BACK: The patient has decubitus ulcer and mild erythema. LABORATORY DATA: Laboratory examination reveals a white count of 16,000, hemoglobin of 10, platelets of 203 with 90% granulocytosis. Coagulation is noted. Chemistries reveals a BUN of 32, creatinine of 0.8, bilirubin is 1.4. Random glucose is 162 and procalcitonin is 1.12. Urinalysis reveals 0-2 wbc's, 10-15 rbc's with over 100 proteinuria and 100 glucosuria and moderate blood in the urine with 10-15 rbc's, a few bacteria. Microbiology: The blood cultures are negative, urine cultures are negative and Dr. Osuna's consultation is appreciated. Dr. Wolf's progress note is reviewed. The patient had an abdominal ultrasound, which showed cholelithiasis and sludge with a mild gallbladder wall thickening, equivocal findings for acute cholecystitis. CAT scan of the chest, which revealed no pulmonary infiltrates. No pleural fluid. The patient had a CAT scan of the abdomen, which shows cholelithiasis and a chest x-ray. ASSESSMENT AND PLAN: An 87-year-old female with diabetes and hypertension, Alzheimer's, who is admitted with fever and leukocytosis with negative blood cultures, urine cultures; however, there are reports of possible gallbladder with the patient has white count of 16,000 with elevated bilirubin liver function tests with sepsis with probable gastrointestinal source, gallbladder. We will order a HIDA scan and treat the patient with ceftriaxone as ordered by Dr. Polanco with a negative CAT scan of the chest. Not necessarily treat as a pneumonia with the azithromycin. We will follow closely with you. Ken Marie MD
--- NOTE | 2018-05-07 16:20 | CP.PCM.PN ---
<Omkar Polanco - Last Filed: 05/07/18 16:14> Subjective - Date & Time of Evaluation Date of Evaluation: 05/07/18 Time of Evaluation: 08:00 - Subjective Subjective: Patient seen and examined at bedside. Patient is more alert than previous encounters. ROS limited as patient is baseline mentally altered. Objective - Vital Signs/Intake and Output Vital Signs (last 24 hours): Temp Pulse Resp BP Pulse Ox 99.4 F 74 20 188/89 H 100 05/07/18 06:00 05/07/18 06:00 05/07/18 06:00 05/07/18 06:00 05/07/18 06:00 Intake and Output: 05/07/18 05/07/18 06:59 18:59 Intake Total 120 480 Balance 120 480 - Medications Medications: Current Medications Acetaminophen (Tylenol 650 Mg Supp) 650 mg RC Q4H PRN PRN Reason: Fever >100.4 F Last Admin: 05/06/18 18:44 Dose: 650 mg Amlodipine Besylate (Norvasc) 5 mg PO DAILY [facility] Last Admin: 05/07/18 10:17 Dose: 5 mg Heparin Sodium (Porcine) (Heparin) 5,000 units SC Q12 [facility] PRN Reason: Protocol Last Admin: 05/07/18 09:29 Dose: 5,000 units Hydralazine HCl (Apresoline) 10 mg IVP Q6 PRN PRN Reason: Other Last Admin: 05/07/18 05:42 Dose: 10 mg Lactated Ringer's (Lactated Ringer's) 1,000 mls @ 100 mls/hr IV .Q10H [facility] Last Admin: 05/07/18 13:11 Dose: 100 mls/hr Ceftriaxone Sodium (Rocephin 1 Gram Ivpb) 1 gm in 100 mls @ 100 mls/hr IVPB DAILY [facility] PRN Reason: Protocol Last Admin: 05/07/18 10:18 Dose: 100 mls/hr Potassium Chloride (Potassium Chloride 10 Meq/100 Ml) 10 meq in 100 mls @ 50 mls/hr IVPB Q2H [facility] Stop: 05/07/18 16:29 Last Admin: 05/07/18 15:34 Dose: 50 mls/hr Insulin Human Regular (Humulin R Low) 0 units SC ACHS [facility] PRN Reason: Protocol Last Admin: 05/07/18 11:49 Dose: 1 units Lisinopril (Zestril) 40 mg PO DAILY [facility] Last Admin: 05/07/18 10:15 Dose: 40 mg Pantoprazole Sodium (Protonix Inj) 40 mg IVP DAILY [facility] Last Admin: 05/07/18 09:30 Dose: 40 mg - Labs Labs: 05/07/18 06:00 05/07/18 06:00 APTT 25.3 Seconds (25.1-36.5) 05/06/18 07:00 - Head Exam Head Exam: ATRAUMATIC, NORMAL INSPECTION, NORMOCEPHALIC - Eye Exam Eye Exam: Normal appearance - ENT Exam ENT Exam: Mucous Membranes Moist - Neck Exam Neck Exam: Normal Inspection - Respiratory Exam Respiratory Exam: Clear to Ausculation Bilateral, NORMAL BREATHING PATTERN. absent: Rhonchi, Wheezes - Cardiovascular Exam Cardiovascular Exam: REGULAR RHYTHM, +S1, +S2 - GI/Abdominal Exam GI & Abdominal Exam: Soft, Normal Bowel Sounds - Extremities Exam Extremities Exam: Normal Inspection - Back Exam Back Exam: NORMAL INSPECTION - Neurological Exam Neurological Exam: Alert, Awake. absent: Oriented x3 - Psychiatric Exam Psychiatric exam: Normal Affect, Normal Mood - Skin Skin Exam: Normal Color, Warm Assessment and Plan - Assessment and Plan (Free Text) Assessment: 87 year old female presenting from private home w/ a PMH significant for dementia, HTN, DM, Sacral Decubitus Ulcer, Hx Falls, and MVP who presented w/ AMS, Leukocytosis, and Fever of unknown origin. Plan: 1. Fever of unknown origin w leukocytosis Fever and leukocytosis resolved SIRS on admission; fever resolved however WBC still elevated CXR w/ Left Lower Lobe pleural effusion CT Chest w/ no acute findings Abd US equivocal for acute cholecystitis Blood Cx no growth after 24 hours UA negative, Urine Cx negative Procal elevated; suggestive of infx etiology Cont Acetaminophine 650 PRN for Fever Cont LR @ 100 mls/hr Cont Azithromycin 500mg QD ID Consulted, recs appreciated GI Consulted, recs appreciated 2. Altered Mental Status Likely delirium 2/2 SIRS vs mechanical fall in the setting of dementia Pt more alert/ active today compared to presentation in ED CT HEAD negative PT Eval ordered, declined by daughter Fall precautions in place 3. Sacral Ala Fx CT AP 7/5 - BL sacral ala fx w/ presacral edema Ortho following; appreciate reccs Conservative management at this time 4.HTN Elevated episodes requiring PRN medications overnight Started Zestril 10mg QD Started Amlodipine 2.5 QD Hydralazine PRN 5. DM2 A1C pending Cont RISS Low Hold home metformin 6.Hypokalemia 3.0; Repleted DVT/GI Pppx: Heparin 5000 Q12; PPI IVP Dispo: pending results of cultures, still on empiric abx, procal elevated, pt is to follow up w/ PMD Dr. Lida Hernandez once discharged Patient was seen and examined and case was discussed at length with attending Dr. Wolf <Kevyn Wolf - Last Filed: 05/07/18 17:05> Objective - Vital Signs/Intake and Output Vital Signs (last 24 hours): Temp Pulse Resp BP Pulse Ox 99.4 F 74 20 188/89 H 100 05/07/18 06:00 05/07/18 06:00 05/07/18 06:00 05/07/18 06:00 05/07/18 06:00 Intake and Output: 05/07/18 05/07/18 06:59 18:59 Intake Total 120 480 Balance 120 480 - Medications Medications: Current Medications Acetaminophen (Tylenol 650 Mg Supp) 650 mg RC Q4H PRN PRN Reason: Fever >100.4 F Last Admin: 05/06/18 18:44 Dose: 650 mg Amlodipine Besylate (Norvasc) 5 mg PO DAILY [facility] Last Admin: 05/07/18 10:17 Dose: 5 mg Heparin Sodium (Porcine) (Heparin) 5,000 units SC Q12 [facility] PRN Reason: Protocol Last Admin: 05/07/18 09:29 Dose: 5,000 units Hydralazine HCl (Apresoline) 10 mg IVP Q6 PRN PRN Reason: Other Last Admin: 05/07/18 05:42 Dose: 10 mg Lactated Ringer's (Lactated Ringer's) 1,000 mls @ 100 mls/hr IV .Q10H [facility] Last Admin: 05/07/18 13:11 Dose: 100 mls/hr Ceftriaxone Sodium (Rocephin 1 Gram Ivpb) 1 gm in 100 mls @ 100 mls/hr IVPB DAILY [facility] PRN Reason: Protocol Last Admin: 05/07/18 10:18 Dose: 100 mls/hr Insulin Human Regular (Humulin R Low) 0 units SC ACHS [facility] PRN Reason: Protocol Last Admin: 05/07/18 11:49 Dose: 1 units Lisinopril (Zestril) 40 mg PO DAILY [facility] Last Admin: 05/07/18 10:15 Dose: 40 mg Pantoprazole Sodium (Protonix Inj) 40 mg IVP DAILY [facility] Last Admin: 05/07/18 09:30 Dose: 40 mg - Labs Labs: 05/07/18 06:00 05/07/18 06:00 APTT 25.3 Seconds (25.1-36.5) 05/06/18 07:00 Attending/Attestation - Attestation I have personally seen and examined this patient.: Yes I have fully participated in the care of the patient.: Yes I have reviewed all pertinent clinical information, including history, physical exam and plan: Yes Notes (Text): 05/07/18 16:47 87 year old female with past medical history of dementia, hypertension and diabetes who was brought in by daughter for abdominal pain, fevers at home and episode of fall at home. In ER she was found to have fever 101, leukocytosis 16. She was started on antibiotics. CXR showed possible LLL pneumonia. However CT chest was negative for pneumonia. Procalcitonin is elevated. Leukocytosis has improved. ID is following. CT and xray imagings also showed bilateral sacral ala fractures, severe bone demineralization and osteoporotic compression fracture deformities, worse at L4. Orthopedics evaluation was appreciated who recommended conservative management. Nephrology is following for hypertension. She is currently on lisinopril and started on norvasc. US abdomen is reviewed. Will follow up with GI recommendations. Will replete and repeat lytes (potassium). Family is at bedside and questions were answered. Kevyn Wolf MD Hospitalist.
[2018-05-08 08:03] LABS: BASO # 0.01 K/mm3 (0.0-2.0); BASO % 0.1 % (0.0-3.0); EOS # 0.1 (0.0-0.7); GRAN # 5.89 (1.4-6.5); GRAN % 74.8 % (50.0-68.0); LYMPH # 1.2 (1.2-3.4); LYMPH % 15.7 % (22.0-35.0); MEAN CELL VOLUME 86.8 fl (80.0-105.0); MEAN CORPUSCULAR HEMOGLOBIN 28.9 pg (25.0-35.0); MEAN CORPUSCULAR HGB CONC 33.3 g/dl (31.0-37.0); MEAN PLATELET VOLUME 9.2 fl (7.0-11.0); MONO # 0.7 (0.1-0.6); MONO % 8.4 % (1.0-6.0); RBC 3.11 10^6/uL (3.5-6.1); RED CELL DISTRIBUTION WIDTH 14.4 % (11.5-14.5); WHITE BLOOD COUNT 7.9 10^3/ul (4.5-11.0)
[2018-05-08 08:10] LABS: ALB/GLOB RATIO 0.9 (1.1-1.8); ALT/SGPT 31 U/L (7-56); AST/SGOT 26 U/L (14-36); BLOOD UREA NITROGEN 21 mg/dL (7-21); CALCIUM 8.4 mg/dL (8.4-10.5); GFR AFRICAN-AMERICAN > 60; GFR NON-AFRICAN AMERICAN > 60
[2018-05-08] MEDS: Lactated Ringer's 1,000 ML IV SCH (08:29)
[2018-05-08] MEDS: Insulin Reg-LOW-Coverage SC SCH ×4 (08:35→16:25)
[2018-05-08] MEDS ORDERED: Potassium Chloride 40 mEq/30 ml LIQ UD PO ONE (09:53)
[2018-05-08] MEDS ORDERED: Ergocalciferol 50,000 Intl Units Cap PO SCH (10:00)
--- NOTE | 2018-05-08 11:54 | CP.PCM.PN ---
Subjective - Date & Time of Evaluation Date of Evaluation: 05/08/18 Time of Evaluation: 11:53 - Subjective Subjective: Nephrology Consultation Note: Assessment: Stable uncontrolled severe HTN ? trigger as acute illness fever ? source Hypokalemia, hypernatremia Anemia b/l renal cysts dementia, hx of sacral decubitus Plan Hypertension control with meds as ordered. increased norvasc to 5 mg and lisinopril to 40 mg and PRN IVP hydralazine can d/c IVF once oral intake satisfactory supplement lytes as needed started Vit D supplement. dose of KCL ordered sec HTN work up with renin/gerri and renal artery doppler. will check Vit D level Dose meds/antibiotics for normal GFR. Glycemic control Further work up/management as per primary team Thanks for allowing me to participate in care of your patient. Will follow patient with you. Please call if any Qs. had d/w family and team Dr Kong Osuna Office: [phone] Chief Complaint; unable. pt came with fever reason for consult: HTN HPI: Pt is a 87 F with hx of hypertension (40+ years) dementia, sacral decubitus presented with complaints of fever and renal consult for HTN management as per daughter BP usually controlled. pt unable to provide any hx ROS: unable to obtain from pt. she is beter as per family 05/06/18; Bp checked by myself Rt arm 180/90 and Left arm 184/92 with family bedside Physical Examination: General Appearance: Comfortable, in no acute respiratory distress, co-operative . Vitals reviewed and noted as below Head; Atraumatic, normocephalic ENT: unable. EYES: Pupils are equal, round and reactive to light accommodation. Sclera is anicteric. Neck; supple no lymphadenopathy, no thyromegaly or bruit Lungs: Normal respiratory rate/effort. Breath sounds bilateral equal and clear anteriorly Heart: Normal rate. s1s2 normal. No rub or gallop. Extremities: no edema. No varicose veins Neurological: Patient is alert, awake and disoriented to person, place and time. has dementia Skin: Warm and dry. Normal turgor. No rash. Palpitation: Normal elasticity for age Abdomen: Abdomen is soft. Bowel sounds +. There is no abdominal tenderness, no guarding/rigidity no organomegaly although exam limited Psych: unable MSK: no joint tenderness or swelling. Digits and nails normal, no deformity : kidney or bladder not palpable Labs/imaging reviewed. Past medical history, past surgical history, family history, social history, allergy reviewed and noted as below Family hx: no hx of CKD. Rest non-contributory renal imaging B/l cysts and adrenals WNL UA 100 protein moderate blood Objective - Vital Signs/Intake and Output Vital Signs (last 24 hours): Temp Pulse Resp BP Pulse Ox 98.7 F 79 18 172/100 H 97 05/08/18 06:00 05/08/18 07:00 05/08/18 06:00 05/08/18 08:16 05/08/18 06:00 - Medications Medications: Current Medications Acetaminophen (Tylenol 650 Mg Supp) 650 mg RC Q4H PRN PRN Reason: Fever >100.4 F Last Admin: 05/06/18 18:44 Dose: 650 mg Amlodipine Besylate (Norvasc) 5 mg PO DAILY [facility] Last Admin: 05/07/18 10:17 Dose: 5 mg Ergocalciferol (Drisdol 50,000 Intl Units Cap) 1 cap PO Q7D [facility] Heparin Sodium (Porcine) (Heparin) 5,000 units SC Q12 [facility] PRN Reason: Protocol Last Admin: 05/07/18 21:34 Dose: 5,000 units Hydralazine HCl (Apresoline) 10 mg IVP Q6 PRN PRN Reason: Other Last Admin: 05/08/18 07:00 Dose: 10 mg Lactated Ringer's (Lactated Ringer's) 1,000 mls @ 100 mls/hr IV .Q10H [facility] Last Admin: 05/08/18 08:29 Dose: 100 mls/hr Ceftriaxone Sodium (Rocephin 1 Gram Ivpb) 1 gm in 100 mls @ 100 mls/hr IVPB DAILY [facility] PRN Reason: Protocol Last Admin: 05/07/18 10:18 Dose: 100 mls/hr Insulin Human Regular (Humulin R Low) 0 units SC ACHS [facility] PRN Reason: Protocol Last Admin: 05/08/18 08:35 Dose: 1 units Lisinopril (Zestril) 40 mg PO DAILY [facility] Last Admin: 05/07/18 10:15 Dose: 40 mg Pantoprazole Sodium (Protonix Inj) 40 mg IVP DAILY [facility] Last Admin: 05/07/18 09:30 Dose: 40 mg - Labs Labs: 05/08/18 07:00 05/08/18 07:00 APTT 25.3 Seconds (25.1-36.5) 05/06/18 07:00
[2018-05-08] MEDS: cefTRIAXone 1 gm 1 GM/100 ML BAG IVPB SCH (12:00)
--- NOTE | 2018-05-08 13:31 | PN ---
DATE: 05/08/2018 LOCATION: Patient is in room 567, bed 1. 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 making it impossible to ambulate and appears not cognizant of her medical condition and needs total body control by help to move and to get on the commode and there is no evidence of long bone fractures, right hip prosthesis is in good position and there is no evidence of long bone deformity and the hips were in good position and the right total hip is doing well and not dislocated, hence it is very rigid and needs total body help to move about the severe right knee and hip flexion contracture make it dangerous to move too much because if we move one way, she may resist and the bones can easily break, so she has to be moved with professional help of 2 therapists to get up out of bed. She has total body rigidity making it difficult to do home care, but family wants to take her home once she is resolved from her medical condition. As of now, there is no need for orthopedic surgery and just to have gentle physical therapy. She does have the chronic stress fractures, bilateral sacral ala fractures and therefore a while insufficiency fracture, but there is no need for surgery and she can get up out of bed to sit in a chair. She has diffuse osteopenia made worse by prolonged bedrest, so I will have to be very careful with mobilizing her and provide her with support, so she does not increase her contractures. Marco Jacobsen DO
--- NOTE | 2018-05-08 13:49 | PN ---
DATE: 05/08/2018 SUBJECTIVE: The patient is in bed, was seen early this morning essentially in bed itself, unable to communicate well. No fevers. No chills. There is no portfolio lead present at this morning. PHYSICAL EXAMINATION: VITAL SIGNS: On exam, temperature is 97, blood pressure is 190/80, respiratory rate of 20, heart rate of 79. HEENT: Examination of HEENT unremarkable. NECK: Supple. LUNGS: Have decreased breath sounds. HEART: Normal S1, S2. ABDOMEN: Soft, nontender. LABORATORY DATA: Laboratory examination reveals the patient's white count is 7.9 and the patient's temperature is subsided and the white count is improved and hemoglobin is 9, platelets of 239. Coagulation is noted. The chemistries reveals . The blood glucose is elevated. The procalcitonin is 1.12 with normal creatinine of 0.7. Urinalysis is unremarkable. Microbiology reveals the patient has negative blood cultures, negative urine cultures. Dr. Wolf's progress note is reviewed. Review of orders reveals the patient to be on ceftriaxone. The patient is scheduled for renal artery duplex. ASSESSMENT AND PLAN: An 87-year-old female with diabetes and hypertension, Alzheimer's, who was admitted with a fever and leukocytosis. Negative blood cultures, negative urine cultures with systemic inflammatory response syndrome, concern about the gallbladder, initially was thought to have possible left lower lobe pneumonia. The patient's white count and fevers both responded to the ceftriaxone. Consider a HIDA scan to rule out gallbladder disease. The patient did have an abdominal ultrasound, which showed no intrahepatic duct dilatation and there is sludge and gallbladder wall thickening. The patient's chest x-ray, there is some volume loss, left lower lobe disease; however, the patient did have a CAT scan of the chest, which states that the patient's lungs have no infiltrates. No evidence of pneumonia. I believe that she may had a biliary event. She did have hyperbilirubinemia with bilirubin of 1.4 both on 05/05/2018 and 05/06/2018. Would complete a short course of antibiotics. Ken Marie MD [facility] # [id number]
--- NOTE | 2018-05-08 15:48 | CP.PCM.PN ---
<Omkar Polanco - Last Filed: 05/08/18 15:49> Subjective - Date & Time of Evaluation Date of Evaluation: 05/08/18 Time of Evaluation: 08:00 - Subjective Subjective: Patient seen and examined at bedside in no acute distress. Patient seems to be more at baseline currently as per children and home health aid workers. ROS not obtained as patient is mentally altered. As per nurse's notes patient was OOB to chair and tolerated. Objective - Vital Signs/Intake and Output Vital Signs (last 24 hours): Temp Pulse Resp BP Pulse Ox 98.7 F 69 18 161/88 H 97 05/08/18 06:00 05/08/18 14:12 05/08/18 06:00 05/08/18 14:12 05/08/18 06:00 - Medications Medications: Current Medications Acetaminophen (Tylenol 650 Mg Supp) 650 mg RC Q4H PRN PRN Reason: Fever >100.4 F Last Admin: 05/06/18 18:44 Dose: 650 mg Amlodipine Besylate (Norvasc) 5 mg PO DAILY [facility] Last Admin: 05/08/18 11:59 Dose: 5 mg Ergocalciferol (Drisdol 50,000 Intl Units Cap) 1 cap PO Q7D [facility] Last Admin: 05/08/18 12:05 Dose: 1 cap Heparin Sodium (Porcine) (Heparin) 5,000 units SC Q12 [facility] PRN Reason: Protocol Last Admin: 05/08/18 12:01 Dose: 5,000 units Hydralazine HCl (Apresoline) 10 mg IVP Q6 PRN PRN Reason: Other Last Admin: 05/08/18 07:00 Dose: 10 mg Lactated Ringer's (Lactated Ringer's) 1,000 mls @ 100 mls/hr IV .Q10H [facility] Last Admin: 05/08/18 08:29 Dose: 100 mls/hr Ceftriaxone Sodium (Rocephin 1 Gram Ivpb) 1 gm in 100 mls @ 100 mls/hr IVPB DAILY [facility] PRN Reason: Protocol Last Admin: 05/08/18 12:00 Dose: 100 mls/hr Insulin Human Regular (Humulin R Low) 0 units SC ACHS [facility] PRN Reason: Protocol Last Admin: 05/08/18 12:06 Dose: 2 units Lisinopril (Zestril) 40 mg PO DAILY [facility] Last Admin: 05/08/18 12:00 Dose: 40 mg Pantoprazole Sodium (Protonix Inj) 40 mg IVP DAILY [facility] Last Admin: 05/08/18 12:01 Dose: 40 mg - Labs Labs: 05/08/18 07:00 05/08/18 07:00 APTT 25.3 Seconds (25.1-36.5) 05/06/18 07:00 - Constitutional Appears: Non-toxic, No Acute Distress - Head Exam Head Exam: ATRAUMATIC, NORMAL INSPECTION, NORMOCEPHALIC - Eye Exam Eye Exam: EOMI, Normal appearance - ENT Exam ENT Exam: Mucous Membranes Moist, Normal Exam - Respiratory Exam Respiratory Exam: Clear to Ausculation Bilateral. absent: Rhonchi, Wheezes - Cardiovascular Exam Cardiovascular Exam: REGULAR RHYTHM, +S1, +S2 - GI/Abdominal Exam GI & Abdominal Exam: Soft, Normal Bowel Sounds - Extremities Exam Extremities Exam: Normal Inspection - Back Exam Back Exam: NORMAL INSPECTION - Neurological Exam Neurological Exam: Alert, Awake, Oriented x3 - Psychiatric Exam Psychiatric exam: Normal Affect, Normal Mood - Skin Skin Exam: Normal Color, Warm Assessment and Plan - Assessment and Plan (Free Text) Assessment: 87 year old female presenting from private home w/ a PMH significant for dementia, HTN, DM, Sacral Decubitus Ulcer, Hx Falls, and MVP who presented w/ AMS, Leukocytosis, and Fever of unknown origin which have now resolved. Plan: 1. Fever of unknown origin w leukocytosis Fever and leukocytosis resolved SIRS on admission; fever resolved however WBC still elevated CXR w/ Left Lower Lobe pleural effusion CT Chest w/ no acute findings Abd US equivocal for acute cholecystitis Blood Cx no growth UA negative, Urine Cx negative Cont Acetaminophin 650 PRN for Fever Cont LR @ 100 mls/hr Cont rocephin, upon discharge will send home on Augmentin ID Consulted, recs appreciated GI Consulted, recs appreciated 2. Altered Mental Status Likely delirium 2/2 SIRS vs mechanical fall in the setting of dementia Pt more alert/ active today compared to presentation in ED -Resolved CT HEAD negative PT Eval recommends discharge to home Fall precautions in place 3. Sacral Ala Fx CT AP 7/5 - BL sacral ala fx w/ presacral edema Ortho following; appreciate recs Conservative management at this time 4.HTN Elevated episodes requiring PRN medications overnight Started Zestril 40mg QD Started Amlodipine 5 QD Hydralazine PRN 5. DM2 A1C 6.9 Cont RISS Low Hold home metformin 6.Hypokalemia 3.2; Repleted DVT/GI Pppx: Heparin 5000 Q12; PPI IVP Dispo: Pt is to follow up w/ PMD Dr. Lida Hernandez once discharged Patient was seen and examined and case was discussed at length with attending Dr. Wolf <Kevyn Wolf - Last Filed: 05/08/18 16:29> Objective - Vital Signs/Intake and Output Vital Signs (last 24 hours): Temp Pulse Resp BP Pulse Ox 98.7 F 69 18 161/88 H 97 05/08/18 06:00 05/08/18 14:12 05/08/18 06:00 05/08/18 14:12 05/08/18 06:00 - Medications Medications: Current Medications Acetaminophen (Tylenol 650 Mg Supp) 650 mg RC Q4H PRN PRN Reason: Fever >100.4 F Last Admin: 05/06/18 18:44 Dose: 650 mg Amlodipine Besylate (Norvasc) 5 mg PO DAILY [facility] Last Admin: 05/08/18 11:59 Dose: 5 mg Ergocalciferol (Drisdol 50,000 Intl Units Cap) 1 cap PO Q7D [facility] Last Admin: 05/08/18 12:05 Dose: 1 cap Heparin Sodium (Porcine) (Heparin) 5,000 units SC Q12 [facility] PRN Reason: Protocol Last Admin: 05/08/18 12:01 Dose: 5,000 units Hydralazine HCl (Apresoline) 10 mg IVP Q6 PRN PRN Reason: Other Last Admin: 05/08/18 07:00 Dose: 10 mg Lactated Ringer's (Lactated Ringer's) 1,000 mls @ 100 mls/hr IV .Q10H [facility] Last Admin: 05/08/18 08:29 Dose: 100 mls/hr Ceftriaxone Sodium (Rocephin 1 Gram Ivpb) 1 gm in 100 mls @ 100 mls/hr IVPB DAILY [facility] PRN Reason: Protocol Last Admin: 05/08/18 12:00 Dose: 100 mls/hr Insulin Human Regular (Humulin R Low) 0 units SC ACHS [facility] PRN Reason: Protocol Last Admin: 05/08/18 12:06 Dose: 2 units Lisinopril (Zestril) 40 mg PO DAILY [facility] Last Admin: 05/08/18 12:00 Dose: 40 mg Pantoprazole Sodium (Protonix Inj) 40 mg IVP DAILY [facility] Last Admin: 05/08/18 12:01 Dose: 40 mg - Labs Labs: 05/08/18 07:00 05/08/18 07:00 APTT 25.3 Seconds (25.1-36.5) 05/06/18 07:00 Attending/Attestation - Attestation I have personally seen and examined this patient.: Yes I have fully participated in the care of the patient.: Yes I have reviewed all pertinent clinical information, including history, physical exam and plan: Yes Notes (Text): 05/08/18 16:25 87 year old female with past medical history of dementia, hypertension and diabetes who was brought in by daughter for abdominal pain, fevers at home and episode of fall at home. In ER she was found to have fever 101, leukocytosis 16. She was started on antibiotics. CXR showed possible LLL pneumonia. However CT chest was negative for pneumonia. Procalcitonin was elevated. Leukocytosis has resolved. ID is following. CT and xray imagings also showed bilateral sacral ala fractures, severe bone demineralization and osteoporotic compression fracture deformities, worse at L4. Orthopedics evaluation was appreciated who recommended conservative management. Nephrology is following for hypertension. Norvasc and lisinopril doses increased for elevated blood pressure. US abdomen is reviewed showing cholelithiasis and equivocal for acute cholelithiasis. LFTs are okay. She is tolerating diet. GI is following and agrees with conservative management. Daughter is also aware and agrees with conservative care. Does not wish for surgery. Kevyn Wolf MD Hospitalist.
--- NOTE | 2018-05-08 18:59 | CP.PCM.PN ---
Subjective - Date & Time of Evaluation Date of Evaluation: 05/08/18 Time of Evaluation: 13:30 - Subjective Subjective: patient appears more comfortab. Patient had tendon was at bedside Objective - Vital Signs/Intake and Output Vital Signs (last 24 hours): Temp Pulse Resp BP Pulse Ox 98.7 F 69 18 161/88 H 97 05/08/18 06:00 05/08/18 14:12 05/08/18 06:00 05/08/18 14:12 05/08/18 06:00 - Medications Medications: Current Medications Acetaminophen (Tylenol 650 Mg Supp) 650 mg RC Q4H PRN PRN Reason: Fever >100.4 F Last Admin: 05/06/18 18:44 Dose: 650 mg Amlodipine Besylate (Norvasc) 5 mg PO DAILY [facility] Last Admin: 05/08/18 11:59 Dose: 5 mg Ergocalciferol (Drisdol 50,000 Intl Units Cap) 1 cap PO Q7D [facility] Last Admin: 05/08/18 12:05 Dose: 1 cap Heparin Sodium (Porcine) (Heparin) 5,000 units SC Q12 [facility] PRN Reason: Protocol Last Admin: 05/08/18 12:01 Dose: 5,000 units Hydralazine HCl (Apresoline) 10 mg IVP Q6 PRN PRN Reason: Other Last Admin: 05/08/18 07:00 Dose: 10 mg Lactated Ringer's (Lactated Ringer's) 1,000 mls @ 100 mls/hr IV .Q10H [facility] Last Admin: 05/08/18 08:29 Dose: 100 mls/hr Ceftriaxone Sodium (Rocephin 1 Gram Ivpb) 1 gm in 100 mls @ 100 mls/hr IVPB DAILY [facility] PRN Reason: Protocol Last Admin: 05/08/18 12:00 Dose: 100 mls/hr Insulin Human Regular (Humulin R Low) 0 units SC ACHS [facility] PRN Reason: Protocol Last Admin: 05/08/18 16:25 Dose: Not Given Lisinopril (Zestril) 40 mg PO DAILY [facility] Last Admin: 05/08/18 12:00 Dose: 40 mg Pantoprazole Sodium (Protonix Inj) 40 mg IVP DAILY [facility] Last Admin: 05/08/18 12:01 Dose: 40 mg - Labs Labs: 05/08/18 07:00 07/08/18 07:00 APTT 25.3 Seconds (25.1-36.5) 05/06/18 07:00 - Constitutional Appears: No Acute Distress - Head Exam Head Exam: ATRAUMATIC, NORMOCEPHALIC - Eye Exam Eye Exam: Normal appearance. absent: Scleral icterus - ENT Exam ENT Exam: Mucous Membranes Moist - Neck Exam Neck Exam: Normal Inspection - Respiratory Exam Respiratory Exam: NORMAL BREATHING PATTERN. absent: Clear to Ausculation Bilateral, Rales, Rhonchi - Cardiovascular Exam Cardiovascular Exam: +S1, +S2. absent: JVD - GI/Abdominal Exam GI & Abdominal Exam: Soft, Normal Bowel Sounds. absent: Tenderness Assessment and Plan - Assessment and Plan (Free Text) Assessment: this 87-year-old patient with a history of chronic con history of diabetes mellitus, hypertension admitted with change of mental status,fever found to have leukocytosis and gallstones.patient was also found to have a sacral alafracture Patient had gallstones with questionable thickening of gallbladder wall. No pericholecystic fluid or significant inflammatory changes. Patient is on ceftriaxone clinically improving Patient did have mildly elevated total bilirubin and alkaline phosphatase was normal common bile duct normal The etiology for SIRS is unclear but certainly cholecystitis should be included in the DD Since the patient is clinically improving it is reasonable to complete the antibiotic course as per ID HIDA scan may be an option be considered if any further concerns in the setting of increasing leukocytosis,worsening of clinical status I did discuss with the Dr. Browning infectious disease specialist Patient's daughter prefers conservative management continue MiraLAX on when necessary basis for constipation.
--- NOTE | 2018-05-09 00:33 | PN ---
DATE: 05/07/2018 SUBJECTIVE: This patient was seen and evaluated earlier. Patient's daughter was at bedside at the time of examination. Feeling more comfortable. Patient did have a history of fever on admission. Now remains afebrile. PHYSICAL EXAMINATION: VITAL SIGNS: Temperature 99.4, blood pressure 188/89. HEENT: Atraumatic, anicteric. NECK: Supple. HEART: S1 and S2 heard. LUNGS: Bilateral air entry present. ABDOMEN: Soft. I could not appreciate any obvious tenderness. EXTREMITIES: No cyanosis, no clubbing. LABORATORY DATA: Hemoglobin 9.4, hematocrit 28.5, WBC 9.6, platelets 219. Chemistry, LFTs are essentially unremarkable except glucose 186 and potassium 3. IMPRESSION AND PLAN: This is an 87-year-old patient admitted with: 1. Fever, leukocytosis, change of mental status. Patient was found to have bilateral sacral alar fracture. 2. History of chronic constipation, on MiraLax on a p.r.n. basis. Patient did have a flexible sigmoidoscopy done for questionable anorectal polyp. The CT scan was reviewed. I did a rectal examination today; only what appeared to be external hemorrhoids were noticed. Appeared to be like erosions noticed. This gave a polypoid appearance in the CAT scan. As per the patient's daughter, it is only a small increase noticed. They do not want any aggressive management for evaluation. Advised the daughter to follow up. If there any increase in size or ulcerations, she may need to have surgical evaluation if she desires. 3. CT scan was reviewed. It shows distended gallbladder with multiple stones. Gallbladder wall, in the ultrasound, showed mildly thickened. There is no significant pericholecystic edema. 4. I did discuss with the medical billing and coding instructor. At the present time, it is reasonable to complete the antibiotic course as ordered by the ID. We will continue to closely follow up her care and suggest further management based on the clinical course. Haily Retana MD
[2018-05-09] MEDS: Insulin Reg-LOW-Coverage SC SCH ×5 (03:05→23:44)
[2018-05-09 07:19] LABS: BASO # 0.01 K/mm3 (0.0-2.0); BASO % 0.1 % (0.0-3.0); EOS # 0.2 (0.0-0.7); EOS % 2.8 % (1.5-5.0); GRAN # 6.11 (1.4-6.5); GRAN % 70.7 % (50.0-68.0); HEMOGLOBIN 9.3 g/dL (12.0-16.0); LYMPH # 1.4 (1.2-3.4); LYMPH % 15.9 % (22.0-35.0); MEAN CELL VOLUME 86.3 fl (80.0-105.0); MEAN CORPUSCULAR HEMOGLOBIN 29.5 pg (25.0-35.0); MEAN CORPUSCULAR HGB CONC 34.2 g/dl (31.0-37.0); MEAN PLATELET VOLUME 9.2 fl (7.0-11.0); MONO # 0.9 (0.1-0.6); MONO % 10.5 % (1.0-6.0); RBC 3.15 10^6/uL (3.5-6.1); RED CELL DISTRIBUTION WIDTH 14.2 % (11.5-14.5); WHITE BLOOD COUNT 8.6 10^3/ul (4.5-11.0)
[2018-05-09 07:36] LABS: ALT/SGPT 30 U/L (7-56); AST/SGOT 25 U/L (14-36); BLOOD UREA NITROGEN 15 mg/dL (7-21); GFR AFRICAN-AMERICAN > 60; GFR NON-AFRICAN AMERICAN > 60
[2018-05-09] MEDS ORDERED: Potassium Chloride 40 mEq/30 ml LIQ UD PO ONE (08:44)
[2018-05-09] MEDS: cefTRIAXone 1 gm 1 GM/100 ML BAG IVPB SCH (09:21)
--- NOTE | 2018-05-09 09:42 | US ---
PROCEDURE: Bilateral renal artery duplex ultrasound. CLINICAL HISTORY: Renal artery stenosis. Uncontrolled hypertension. Evaluate for renovascular hypertension. PHYSICIAN(S): Joey Jamil M.D. TECHNIQUE: Duplex sonography with color-flow Doppler was used to evaluate the visualized segments of the main renal arteries. The patient was evaluated in a fasting state. Imaging in a supine and decubitus position was performed. Limited evaluation of the arcuate waveforms and resistive indices were performed. FINDINGS: The patient is unable to cooperate and visualization of the renal arteries is extremely limited. The study is nondiagnostic for renal artery stenosis. If suspicion for renal artery occlusive disease is high, additional imaging with an MRA with gadolinium evaluation, CTA, or conventional arteriogram can be considered. The right kidney measures 10.5 cm in length in the left kidney measures 10.5 cm in length. No obvious hydronephrosis is seen. No calcifications or solid renal masses are appreciated. IMPRESSION: 1. Very limited, nondiagnostic study for renal artery stenosis. If clinical suspicion is high, additional evaluation with MRA, CTA, or conventional arteriography can be considered.
--- NOTE | 2018-05-09 14:24 | CP.PCM.PN ---
<Max Patel - Last Filed: 05/09/18 16:04> Subjective - Date & Time of Evaluation Date of Evaluation: 05/09/18 Time of Evaluation: 14:16 - Subjective Subjective: Max Patel DO - PGY1 INTERNAL MEDICINE RESIDENT - MEDICINE PROGRESS NOTE Patient was seen this AM at bedside with caregiver present. She appeared much more comfortable than days previous. During morning rounds daughter was spoken to regarding monitoring the patient's diabetes and blood pressure. No concerns from nursing overnight; patient has remained stable. Unable to assess ROS at this time. Objective - Vital Signs/Intake and Output Vital Signs (last 24 hours): Temp Pulse Resp BP Pulse Ox 99.5 F 83 21 136/88 95 05/09/18 06:00 05/09/18 09:22 05/09/18 06:00 05/09/18 09:22 05/09/18 06:00 Intake and Output: 05/09/18 05/09/18 06:59 18:59 Intake Total 120 Balance 120 - Medications Medications: Current Medications Acetaminophen (Tylenol 650 Mg Supp) 650 mg RC Q4H PRN PRN Reason: Fever >100.4 F Last Admin: 05/06/18 18:44 Dose: 650 mg Amlodipine Besylate (Norvasc) 10 mg PO DAILY [facility] Ergocalciferol (Drisdol 50,000 Intl Units Cap) 1 cap PO Q7D [facility] Last Admin: 05/08/18 12:05 Dose: 1 cap Heparin Sodium (Porcine) (Heparin) 5,000 units SC Q12 [facility] PRN Reason: Protocol Last Admin: 05/09/18 09:21 Dose: 5,000 units Hydralazine HCl (Apresoline) 10 mg IVP Q6 PRN PRN Reason: Other Last Admin: 05/09/18 06:20 Dose: 10 mg Ceftriaxone Sodium (Rocephin 1 Gram Ivpb) 1 gm in 100 mls @ 100 mls/hr IVPB DAILY [facility] PRN Reason: Protocol Last Admin: 05/09/18 09:21 Dose: 100 mls/hr Insulin Human Regular (Humulin R Low) 0 units SC ACHS [facility] PRN Reason: Protocol Last Admin: 05/09/18 11:48 Dose: 1 units Lisinopril (Zestril) 40 mg PO DAILY [facility] Last Admin: 05/09/18 09:22 Dose: 40 mg Metoprolol Tartrate (Lopressor) 25 mg PO BRKDIN [facility] Last Admin: 05/09/18 13:30 Dose: Not Given Pantoprazole Sodium (Protonix Ec Tab) 40 mg PO ACB [facility] - Labs Labs: 05/09/18 06:30 05/09/18 06:30 APTT 25.3 Seconds (25.1-36.5) 05/06/18 07:00 - Constitutional Appears: Non-toxic, Non-distressed; relatively comfortable - Head Exam Head Exam: ATRAUMATIC, NORMAL INSPECTION, NORMOCEPHALIC - Eye Exam Eye Exam: EOMI, Normal appearance - ENT Exam ENT Exam: Mucous Membranes Moist, Normal Exam - Respiratory Exam Respiratory Exam: Clear to Ausculation Bilateral. absent: Rhonchi, Wheezes - Cardiovascular Exam Cardiovascular Exam: REGULAR RHYTHM, +S1, +S2 - GI/Abdominal Exam GI & Abdominal Exam: Soft, Normal Bowel Sounds, No involuntary guarding - Extremities Exam Extremities Exam: Normal Inspection - Back Exam Back Exam: NORMAL INSPECTION - Neurological Exam Neurological Exam: Alert, spontaneously looking around room, active, AAOx1 - Psychiatric Exam Psychiatric exam: Normal Affect, Normal Mood - Skin Skin Exam: Normal Color, Warm Assessment and Plan - Assessment and Plan (Free Text) Assessment: 87 year old female presenting from private home w/ a PMH significant for dementia, HTN, DM, Sacral Decubitus Ulcer, Hx Falls, and MVP who presented w/ AMS, Leukocytosis, and Fever of unknown origin which have now resolved. Plan: 1. SIRS likely 2/2 Acute Cholecystitis Fever and leukocytosis resolved Abd US equivocal for acute cholecystitis Blood Cx 2/2 negative on Day 3 UA negative, Urine Cx negative Cont Acetaminophin 650 PRN for Fever Cont rocephin - Day 5 HIDA scan to be performed today will f/u results ID Consulted, recs appreciated GI Consulted, recs appreciated 2. Altered Mental Status Likely delirium 2/2 SIRS and/or Cholecystitis in the setting of preexisting dementia Pt more alert/ active today compared to initial impression, and days prior CT HEAD negative PT Eval recommends discharge to home Fall precautions in place 3. Sacral Ala Fx CT AP 7/5 - BL sacral ala fx w/ presacral edema Ortho following; appreciate recs Conservative management at this time 4.HTN SBP 136-190 Continue Zestril 40mg QD Increased from Amlodipine 5 QD to Amlodipine 10 QD Started metoprolol 25 QD as per nephro Cont Hydralazine 10 PRN Daughter educated on importance of QD BP monitoring, particularly upon D/C Nephrology consulted, recs appreciated 5. DM2 Cont ISS Low Hold home metformin A1C 6.9 Daughter educated on importance of daily accuchecks when discharged 6.Hypokalemia Repleted with PO K DVT/GI Pppx: Heparin 5000 Q12; PPI IVP Dispo: Pt is to follow up w/ PMD Dr. Lida Hernandez once discharged; If stable overnight, possible DC for tomorrow AM. Case discussed w/ attending Dr. Otilio Patel DO - PGY1 [employer] - Pager [phone] <Cristal Yañez - Last Filed: 05/10/18 17:46> Objective - Vital Signs/Intake and Output Vital Signs (last 24 hours): Temp Pulse Resp BP Pulse Ox 97 F L 85 18 158/84 H 93 L 05/10/18 06:00 05/10/18 06:00 05/10/18 06:00 05/10/18 09:56 05/10/18 06:00 Intake and Output: 05/10/18 05/10/18 06:59 18:59 Intake Total 360 240 Balance 360 240 - Labs Labs: 05/10/18 06:00 05/10/18 06:00 APTT 25.3 Seconds (25.1-36.5) 05/06/18 07:00 Attending/Attestation - Attestation I have personally seen and examined this patient.: Yes I have fully participated in the care of the patient.: Yes I have reviewed all pertinent clinical information, including history, physical exam and plan: Yes Notes (Text): 05/10/18 17:42 Medical record note made by the resident after discussion with my direction and input after the patient was personally seen and examined by me. I have reviewed the chart and agree that the record accurately reflects by personal performance of the history, physical exam, data review, and medical decision-making, in the course for the patient. I have also personally directed the plan of care. 87 year old female with PMH of dementia, hypertension and diabetes was admitted with abdominal pain, fever 101, leukocytosis 16 and episode of fall at home. CXR showed possible LLL pneumonia. However CT chest was negative for pneumonia. Procalcitonin was elevated. US abdomen showedcholelithiasis and equivocal for acute cholelithiasis.Patient was treated with IV antibiotics, has responded well , she is afebrile, leukocytosis is resolved. GI is following and agrees with conservative management. Daughter is also aware and agrees with conservative care. Does not wish for surgery. CT and xray imaging also showed bilateral sacral ala fractures, severe bone demineralization and osteoporotic compression fracture deformities, worse at L4. Orthopedics evaluation was appreciated who recommended conservative management. Blood pressure is elevated, will increase dose of amlodipine to 10 mg po daily. Management plan was discussed in detail with patient daughter who is at bed side. Education was provided.
--- NOTE | 2018-05-09 14:34 | NM ---
PROCEDURE: Nuclear Medicine Hepatobiliary Scan HISTORY: GB inflammation, assess on HIDA COMPARISON: 09/06/2012 hepatobiliary scan. 05/06/2018 abdominal ultrasound. TECHNIQUE: 5.4 mCi of technetium 99m Mebrofenin was administered intravenously. Planar images of the abdomen were obtained at 5 min intervals to 60 mins. Delayed images were also obtained. FINDINGS: LIVER: Timely and homogenous uptake. COMMON BILE DUCT: identified at 5 mins. GALLBLADDER: identified at 30 mins. SMALL BOWEL: Identified at 15 mins. IMPRESSION: Normal Hepatobiliary Scan. The cystic duct is patent.
--- NOTE | 2018-05-09 15:42 | CP.PCM.PN ---
Subjective - Date & Time of Evaluation Date of Evaluation: 05/09/18 Time of Evaluation: 15:40 - Subjective Subjective: Nephrology Consultation Note: Assessment: Stable uncontrolled severe HTN ? trigger as acute illness fever ? source Hypokalemia, hypernatremia Anemia b/l renal cysts dementia, hx of sacral decubitus Plan Hypertension control with meds as ordered. d/c home with lotrel 10/40 mg 1 tab daily, daughter refuses more than 1 tab/day for HTN. she was advised to monitor BP daily at home. rx for BP machine given to her. Rx for Lotrel left with RN can d/c IVF once oral intake satisfactory supplement lytes as needed started Vit D supplement. sec HTN work up with renin/gerri and renal artery doppler. will check Vit D level Dose meds/antibiotics for normal GFR. Glycemic control Further work up/management as per primary team pt stable for d/c from renal perspective when planned by team Thanks for allowing me to participate in care of your patient. Please call if any Qs. had d/w family and team Dr Kong Osuna Office: [phone] Chief Complaint; unable. pt came with fever reason for consult: HTN HPI: Pt is a 87 F with hx of hypertension (40+ years) dementia, sacral decubitus presented with complaints of fever and renal consult for HTN management as per daughter BP usually controlled. pt unable to provide any hx ROS: unable to obtain from pt. she is better as per family Physical Examination: General Appearance: Comfortable, in no acute respiratory distress, co-operative . Vitals reviewed and noted as below Head; Atraumatic, normocephalic ENT: unable. EYES: Pupils are equal, round and reactive to light accommodation. Sclera is anicteric. Neck; supple no lymphadenopathy, no thyromegaly or bruit Lungs: Normal respiratory rate/effort. Breath sounds bilateral equal and clear anteriorly Heart: Normal rate. s1s2 normal. No rub or gallop. Extremities: no edema. No varicose veins Neurological: Patient is alert, awake and disoriented to person, place and time. has dementia Skin: Warm and dry. Normal turgor. No rash. Palpitation: Normal elasticity for age Abdomen: Abdomen is soft. Bowel sounds +. There is no abdominal tenderness, no guarding/rigidity no organomegaly although exam limited Psych: unable MSK: no joint tenderness or swelling. Digits and nails normal, no deformity : kidney or bladder not palpable Labs/imaging reviewed. Past medical history, past surgical history, family history, social history, allergy reviewed and noted as below Family hx: no hx of CKD. Rest non-contributory renal imaging B/l cysts and adrenals WNL UA 100 protein moderate blood Objective - Vital Signs/Intake and Output Vital Signs (last 24 hours): Temp Pulse Resp BP Pulse Ox 99.5 F 83 21 136/88 95 05/09/18 06:00 05/09/18 09:22 05/09/18 06:00 05/09/18 09:22 05/09/18 06:00 Intake and Output: 05/09/18 05/09/18 06:59 18:59 Intake Total 120 Balance 120 - Medications Medications: Current Medications Acetaminophen (Tylenol 650 Mg Supp) 650 mg RC Q4H PRN PRN Reason: Fever >100.4 F Last Admin: 05/06/18 18:44 Dose: 650 mg Amlodipine Besylate (Norvasc) 10 mg PO DAILY [facility] Ergocalciferol (Drisdol 50,000 Intl Units Cap) 1 cap PO Q7D [facility] Last Admin: 05/08/18 12:05 Dose: 1 cap Heparin Sodium (Porcine) (Heparin) 5,000 units SC Q12 [facility] PRN Reason: Protocol Last Admin: 05/09/18 09:21 Dose: 5,000 units Hydralazine HCl (Apresoline) 10 mg IVP Q6 PRN PRN Reason: Other Last Admin: 05/09/18 06:20 Dose: 10 mg Ceftriaxone Sodium (Rocephin 1 Gram Ivpb) 1 gm in 100 mls @ 100 mls/hr IVPB DAILY [facility] PRN Reason: Protocol Last Admin: 05/09/18 09:21 Dose: 100 mls/hr Insulin Human Regular (Humulin R Low) 0 units SC ACHS [facility] PRN Reason: Protocol Last Admin: 05/09/18 11:48 Dose: 1 units Lisinopril (Zestril) 40 mg PO DAILY [facility] Last Admin: 05/09/18 09:22 Dose: 40 mg Metoprolol Tartrate (Lopressor) 25 mg PO BRKDIN [facility] Last Admin: 05/09/18 13:30 Dose: Not Given Pantoprazole Sodium (Protonix Ec Tab) 40 mg PO ACB [facility] - Labs Labs: 05/09/18 06:30 05/09/18 06:30 APTT 25.3 Seconds (25.1-36.5) 05/06/18 07:00
--- NOTE | 2018-05-09 16:14 | CP.PCM.PN ---
Subjective - Date & Time of Evaluation Date of Evaluation: 05/09/18 Time of Evaluation: 07:50 - Subjective Subjective: PGY6 GI Fellow Progress Note Patient seen and examined bedside this morning. The patient is demented and unable to provide any interval history. Nursing aid at bedside states patient restless overnight. No nausea, vomiting overnight. 12 system ROS cannot be performed given dementia. Objective - Vital Signs/Intake and Output Vital Signs (last 24 hours): Temp Pulse Resp BP Pulse Ox 99.5 F 83 21 136/88 95 05/09/18 06:00 05/09/18 09:22 05/09/18 06:00 05/09/18 09:22 05/09/18 06:00 Intake and Output: 05/09/18 05/09/18 06:59 18:59 Intake Total 120 Balance 120 - Medications Medications: Current Medications Acetaminophen (Tylenol 650 Mg Supp) 650 mg RC Q4H PRN PRN Reason: Fever >100.4 F Last Admin: 05/06/18 18:44 Dose: 650 mg Amlodipine Besylate (Norvasc) 10 mg PO DAILY [facility] Ergocalciferol (Drisdol 50,000 Intl Units Cap) 1 cap PO Q7D [facility] Last Admin: 05/08/18 12:05 Dose: 1 cap Heparin Sodium (Porcine) (Heparin) 5,000 units SC Q12 [facility] PRN Reason: Protocol Last Admin: 05/09/18 09:21 Dose: 5,000 units Hydralazine HCl (Apresoline) 10 mg IVP Q6 PRN PRN Reason: Other Last Admin: 05/09/18 06:20 Dose: 10 mg Ceftriaxone Sodium (Rocephin 1 Gram Ivpb) 1 gm in 100 mls @ 100 mls/hr IVPB DAILY [facility] PRN Reason: Protocol Last Admin: 05/09/18 09:21 Dose: 100 mls/hr Insulin Human Regular (Humulin R Low) 0 units SC ACHS [facility] PRN Reason: Protocol Last Admin: 05/09/18 11:48 Dose: 1 units Lisinopril (Zestril) 40 mg PO DAILY [facility] Last Admin: 05/09/18 09:22 Dose: 40 mg Pantoprazole Sodium (Protonix Ec Tab) 40 mg PO ACB [facility] - Labs Labs: 05/09/18 06:30 05/09/18 06:30 APTT 25.3 Seconds (25.1-36.5) 05/06/18 07:00 - Constitutional Appears: Non-toxic, No Acute Distress, Chronically Ill - Eye Exam Eye Exam: PERRL - ENT Exam ENT Exam: Mucous Membranes Dry - Respiratory Exam Respiratory Exam: Decreased Breath Sounds. absent: Rales, Rhonchi, Wheezes - Cardiovascular Exam Cardiovascular Exam: RRR, +S1, +S2 - GI/Abdominal Exam GI & Abdominal Exam: Soft, Normal Bowel Sounds. absent: Distended, Firm, Guarding, Rigid, Tenderness, Organomegaly - Extremities Exam Extremities Exam: Normal Inspection. absent: Pedal Edema - Neurological Exam Neurological Exam: Altered, Awake - Psychiatric Exam Psychiatric exam: Normal Affect, Normal Mood - Skin Skin Exam: Dry, Warm Assessment and Plan - Assessment and Plan (Free Text) Assessment: Patient is an 87yo female with PMHx significant for chronic constipation, DM, HTN who presented to the ED with altered mentation, fever. -Abdominal pain, resolved -Dementia -Fever/Leukocytosis - unclear etiology -Sacral fracture Plan: -All imaging reviewed - HIDA performed today, negative -Do not suspect gallbladder as etiology of febrile illness -ID following -Continued on Ceftriaxone -Miralax bowel regimen as needed for constipation
--- NOTE | 2018-05-09 16:37 | CP.PCM.PN ---
Subjective - Date & Time of Evaluation Date of Evaluation: 05/09/18 Time of Evaluation: 10:10 - Subjective Subjective: No fevers, comfortable. Objective - Vital Signs/Intake and Output Vital Signs (last 24 hours): Temp Pulse Resp BP Pulse Ox 99.5 F 89 21 190/98 H 95 05/09/18 06:00 05/09/18 06:20 05/09/18 06:00 05/09/18 06:20 05/09/18 06:00 Intake and Output: 05/09/18 05/09/18 06:59 18:59 Intake Total 120 Balance 120 - Medications Medications: Current Medications Acetaminophen (Tylenol 650 Mg Supp) 650 mg RC Q4H PRN PRN Reason: Fever >100.4 F Last Admin: 05/06/18 18:44 Dose: 650 mg Amlodipine Besylate (Norvasc) 5 mg PO DAILY [facility] Last Admin: 05/08/18 11:59 Dose: 5 mg Ergocalciferol (Drisdol 50,000 Intl Units Cap) 1 cap PO Q7D [facility] Last Admin: 05/08/18 12:05 Dose: 1 cap Heparin Sodium (Porcine) (Heparin) 5,000 units SC Q12 [facility] PRN Reason: Protocol Last Admin: 05/08/18 21:59 Dose: 5,000 units Hydralazine HCl (Apresoline) 10 mg IVP Q6 PRN PRN Reason: Other Last Admin: 05/09/18 06:20 Dose: 10 mg Lactated Ringer's (Lactated Ringer's) 1,000 mls @ 100 mls/hr IV .Q10H [facility] Last Admin: 05/08/18 08:29 Dose: 100 mls/hr Ceftriaxone Sodium (Rocephin 1 Gram Ivpb) 1 gm in 100 mls @ 100 mls/hr IVPB DAILY [facility] PRN Reason: Protocol Last Admin: 05/08/18 12:00 Dose: 100 mls/hr Potassium Chloride (Potassium Chloride 10 Meq/100 Ml) 10 meq in 100 mls @ 50 mls/hr IVPB ONCE ONE Stop: 05/09/18 10:44 Insulin Human Regular (Humulin R Low) 0 units SC ACHS [facility] PRN Reason: Protocol Last Admin: 05/09/18 08:21 Dose: 1 units Lisinopril (Zestril) 40 mg PO DAILY [facility] Last Admin: 05/08/18 12:00 Dose: 40 mg Pantoprazole Sodium (Protonix Inj) 40 mg IVP DAILY [facility] Last Admin: 05/08/18 12:01 Dose: 40 mg - Labs Labs: 05/09/18 06:30 05/09/18 06:30 APTT 25.3 Seconds (25.1-36.5) 05/06/18 07:00 - Constitutional Appears: Chronically Ill - Head Exam Head Exam: NORMAL INSPECTION - Respiratory Exam Respiratory Exam: Decreased Breath Sounds - Cardiovascular Exam Cardiovascular Exam: +S1, +S2 - GI/Abdominal Exam GI & Abdominal Exam: Soft. absent: Tenderness Assessment and Plan - Assessment and Plan (Free Text) Plan: Assessment Systemic Inflammatory Response Syndrome, R/O biliary tract disease HTN DM dementia sacral ulcer which started in 2014 history of left hip decubitus ulcer history of urinary incontinence Plan continue Rocephin day 4 to complete 7-10 days of therapy; patient may need HIDA scan - ultrasound of abdomen showed GB wall thickening
[2018-05-09] MEDS: Potassium Chloride 40 mEq/30 ml LIQ UD PO SCH ×3 (17:25→23:16)
[2018-05-10 03:25] VITALS: RESP 18
[2018-05-10 06:58] LABS: BASO # 0.01 K/mm3 (0.0-2.0); BASO % 0.1 % (0.0-3.0); EOS # 0.2 (0.0-0.7); GRAN # 7.81 (1.4-6.5); GRAN % 76.7 % (50.0-68.0); HEMOGLOBIN 9.9 g/dL (12.0-16.0); LYMPH # 1.5 (1.2-3.4); LYMPH % 14.3 % (22.0-35.0); MEAN CELL VOLUME 87.2 fl (80.0-105.0); MEAN CORPUSCULAR HEMOGLOBIN 29.4 pg (25.0-35.0); MEAN CORPUSCULAR HGB CONC 33.7 g/dl (31.0-37.0); MEAN PLATELET VOLUME 9.2 fl (7.0-11.0); MONO # 0.7 (0.1-0.6); MONO % 6.9 % (1.0-6.0); RBC 3.37 10^6/uL (3.5-6.1); RED CELL DISTRIBUTION WIDTH 14.1 % (11.5-14.5); WHITE BLOOD COUNT 10.2 10^3/ul (4.5-11.0)
[2018-05-10 07:05] LABS: ALBUMIN 3.2 g/dL (3.0-4.8); ALT/SGPT 27 U/L (7-56); AST/SGOT 31 U/L (14-36); BLOOD UREA NITROGEN 10 mg/dL (7-21); CALCIUM 8.7 mg/dL (8.4-10.5); GFR AFRICAN-AMERICAN > 60; GFR NON-AFRICAN AMERICAN > 60
--- NOTE | 2018-05-10 07:20 | CP.PCM.DIS ---
<Max Patel - Last Filed: 05/10/18 19:26> Provider - Provider Date of Admission: 05/05/18 14:21 Attending physician: Cristal Yañez MD Primary care physician: Ronnie Hilton MD Consults: Nephro - Dr. Osuna Orthopedics - Dr. Jacobsen GI - Dr. Lainey LU - Dr. Marie Time Spent in preparation of Discharge (in minutes): 40 Diagnosis - Discharge Diagnosis (1) Fever, unknown origin Status: Acute Priority: High (2) HTN (hypertension) Status: Chronic Priority: High (3) Cholelithiases Status: Acute Priority: High (4) Delirium Status: Acute Priority: High (5) Diabetes Status: Chronic Priority: Medium (6) Chronic fracture Status: Chronic Priority: Medium Hospital Course - Lab Results Lab Results: Micro Results 05/05/18 17:08 Blood Blood Culture - Preliminary NO GROWTH AFTER 4 DAYS 05/05/18 16:45 Blood Blood Culture - Preliminary NO GROWTH AFTER 4 DAYS 05/05/18 14:22 Urine Urine Culture - Final No Growth (<1,000 CFU/ML) Most Recent Lab Values WBC 10.2 10^3/ul (4.5-11.0) 05/10/18 06:00 RBC 3.37 10^6/uL (3.5-6.1) L 05/10/18 06:00 Hgb 9.9 g/dL (12.0-16.0) L 05/10/18 06:00 Hct 29.4 % (36.0-48.0) L 05/10/18 06:00 MCV 87.2 fl (80.0-105.0) 05/10/18 06:00 MCH 29.4 pg (25.0-35.0) 05/10/18 06:00 MCHC 33.7 g/dl (31.0-37.0) 05/10/18 06:00 RDW 14.1 % (11.5-14.5) 05/10/18 06:00 Plt Count 297 10^3/uL (120.0-450.0) 05/10/18 06:00 MPV 9.2 fl (7.0-11.0) 05/10/18 06:00 Gran % 76.7 % (50.0-68.0) H 05/10/18 06:00 Lymph % (Auto) 14.3 % (22.0-35.0) L 05/10/18 06:00 [place] % (Auto) 6.9 % (1.0-6.0) H 05/10/18 06:00 Eos % (Auto) 2.0 % (1.5-5.0) 05/10/18 06:00 Baso % (Auto) 0.1 % (0.0-3.0) 05/10/18 06:00 Gran # 7.81 (1.4-6.5) H 05/10/18 06:00 Lymph # (Auto) 1.5 (1.2-3.4) 05/10/18 06:00 [place] # (Auto) 0.7 (0.1-0.6) H 05/10/18 06:00 Eos # (Auto) 0.2 (0.0-0.7) 05/10/18 06:00 Baso # (Auto) 0.01 K/mm3 (0.0-2.0) 05/10/18 06:00 Neutrophils % (Manual) 89 % (50.0-70.0) H 05/05/18 10:20 Lymphocytes % (Manual) 5 % (22.0-35.0) L 05/05/18 10:20 Monocytes % (Manual) 6 % (1.0-6.0) 05/05/18 10:20 Platelet Evaluation Normal (NORMAL) 05/05/18 10:20 APTT 25.3 Seconds (25.1-36.5) 05/06/18 07:00 Sodium 140 mmol/L (132-148) 05/10/18 06:00 Potassium 4.1 mmol/L (3.6-5.0) 05/10/18 06:00 Chloride 107 mmol/L (98-107) 05/10/18 06:00 Carbon Dioxide 24 mmol/L (21-33) 05/10/18 06:00 Anion Gap 14 (10-20) 05/10/18 06:00 BUN 10 mg/dL (7-21) 05/10/18 06:00 Creatinine 0.6 mg/dl (0.7-1.2) L 05/10/18 06:00 Est GFR ( Amer) > 60 05/10/18 06:00 Est GFR (Non-Af Amer) > 60 05/10/18 06:00 POC Glucose (mg/dL) 166 mg/dL (65-110) H 05/10/18 06:37 Random Glucose 162 mg/dL (70-110) H 05/10/18 06:00 Hemoglobin A1c 6.9 % (4.2-6.5) H 05/07/18 16:46 Lactic Acid 1.4 mmol/L (0.7-2.1) 05/05/18 18:37 Calcium 8.7 mg/dL (8.4-10.5) 05/10/18 06:00 Magnesium 1.9 mg/dL (1.7-2.2) 05/05/18 10:20 Total Bilirubin 0.7 mg/dL (0.2-1.3) 05/10/18 06:00 AST 31 U/L (14-36) 05/10/18 06:00 ALT 27 U/L (7-56) 05/10/18 06:00 Alkaline Phosphatase 112 U/L (38-126) 05/10/18 06:00 Total Protein 6.5 g/dL (5.8-8.3) 05/10/18 06:00 Albumin 3.2 g/dL (3.0-4.8) 05/10/18 06:00 Globulin 3.3 gm/dL 05/10/18 06:00 Albumin/Globulin Ratio 1.0 (1.1-1.8) L 05/10/18 06:00 Lipase 24 U/L (23-300) 05/05/18 10:20 25-OH Vitamin D Total 21.1 NG/ML (30.0-100.0) L 05/07/18 06:00 Procalcitonin 1.12 NG/ML (0.19-0.49) H 05/05/18 17:08 TSH 3rd Generation 1.75 mIU/mL (0.46-4.68) 05/05/18 17:08 Urine Color Yellow (YELLOW) 05/05/18 14:22 Urine Appearance Clear (CLEAR) 05/05/18 14:22 Urine pH 6.0 (4.7-8.0) 05/05/18 14:22 Ur Specific [place] 1.020 (1.005-1.035) 05/05/18 14:22 Urine Protein 100 mg/dL (<30 mg/dL) H 05/05/18 14:22 Urine Glucose (UA) 100 mg/dL (NEGATIVE) H 05/05/18 14:22 Urine Ketones Negative mg/dL (NEGATIVE) 05/05/18 14:22 Urine Blood Moderate (NEGATIVE) H 05/05/18 14:22 Urine Nitrate Negative (NEGATIVE) 05/05/18 14:22 Urine Bilirubin Negative (NEGATIVE) 05/05/18 14:22 Urine Urobilinogen 0.2 E.U./dL (<1 E.U./dL) 05/05/18 14:22 Ur Leukocyte Esterase Negative Ian/uL (NEGATIVE) 05/05/18 14:22 Urine RBC 10 - 15 /hpf (0-2) 05/05/18 14:22 Urine WBC 0 - 2 /hpf (0-6) 05/05/18 14:22 Ur Epithelial Cells 4 - 5 /hpf (0-5) 05/05/18 14:22 Urine Bacteria Few (NEG) 05/05/18 14:22 - Hospital Course Hospital Course: This patient is a 87F presenting from private home w/ a PMH significant for dementia, HTN, DM, Sacral Decubitus Ulcer, Hx Falls, and MVP. Patient is a poor historian and history was provided by daughter. [place] [facility] [place] w/ CC of AMS from baseline, as well as abdominal pain as noted by daughter. Daughter reports patient is normally AAOx1 and patient has been less responsive with decreased appetite. Daughter could not recall any precipitating event however did recall that pt. had mechanical fall 2weeks ago w/o LOC. Daughter reported subjective fevers at home w/ temp of 99. In ED: Pt was found to be altered, minimally responsive, and febrile w/ temperature 100.5; leukocytosis; Pt. met sirs criteria, and sepsis workup was initiated, blood cx 2/2 negative by 4 days, and urine cx w/o growth; pt. started on ceftriaxone 1gm and azithromycin 500mg; given 3L bolus. Patient was also found to have elevated procalcitonin. Pt. will be DC'd home on PO Augmentin for 4 days totaling antibiotic therapy to 10 days. Imaging performed in the ED on 05/05 was summarized as follows: CXR showed small pleural effusion of Left Lower Lobe, CTAP revealed BL sacral ala fx; and cholelithiasis; CT Head revealed no acute changes. Xray of the femur revealed only demineralization, Lumbar spine xray only revealed osteoporotic compression fracture worse at L4, Thoracic spine xray revealing demineralization. Orthopedic surgery was consulted, and only recommended conservative management. Pt. to be DC'd with Qweekly Ergocalciferol. Follow up CT scan of the chest on 05/06 revealed no other infiltrate or acute cardiopulmonary changes; It did reveal possible tumefactive sludge in the gallbladder. GI was consulted due to abdominal pain, recommended abdominal U/S which was performed on 05/06 revealing colelithiasis w/ mild gallbladder wall thickening, and equivocal findings for cholecystitis. HIDA scan on 05/09 was read as normal. On admission Na+ of 149 however once transported to floors patient's BP started trending upwards. Nephrology consulted for hypertensive management; overall recommended conservative management upon discharge w/ Amlodipine/Benazapril 10- 40 combo. Pt's daughter was educated on importance of daily BP checks and told to maintain a diary. Daughter advised to call PCP immediately should patient experience s/s of hypotension. Pt. was seen this AM at bedside; no complaints or changes overnight reported by nursing. Patient active today spontaneously opening eyes. Discharge instructions were discussed w/ daughter who is agreeable to plan at this time. Pt. is to follow up w/ PCP Dr. Hilton within 7 days. - Date & Time of H&P Date of H&P: 05/05/18 Time of H&P: 18:56 Discharge Exam - Head Exam Head Exam: NORMAL INSPECTION, NORMOCEPHALIC - Eye Exam Eye Exam: PERRL. absent: Scleral icterus - ENT Exam ENT Exam: Mucous Membranes Moist - Respiratory Exam Respiratory Exam: NORMAL BREATHING PATTERN. absent: Wheezes, Respiratory Distress - Cardiovascular Exam Cardiovascular Exam: RRR, +S1, +S2 - GI/Abdominal Exam GI & Abdominal Exam: Normal Bowel Sounds, Soft. absent: Guarding, Tenderness - Extremities Exam Extremities exam: pedal pulses present Additional comments: No edema BL - Back Exam Back exam: NORMAL INSPECTION - Neurological Exam Additional comments: AAOx1; alert/ active; No acute distress; Mental status at baseline - Skin Skin Exam: Dry, Intact, Warm Discharge Plan - Discharge Medications Prescriptions: Amlodipine Besylate/Benazepril [Lotrel 10 mg-40 mg] 1 cap PO DAILY #10 cap Amoxicillin/Clavulanate [Augmentin 875 MG-125 MG Tab] 1 tab PO Q12 4 Days #7 tab Metformin HCl [Glucophage] 500 mg PO BID #60 tablet - Follow Up Plan Condition: FAIR Disposition: HOME/ ROUTINE Patient education suggested?: Yes Instructions: Dysphagia, Fever of Unknown Origin, Preventing Falls in the Older Adult, Blood Glucose Monitoring, Preventing Falls, Dementia (DC), Constipation (DC), Constipation (GEN) Additional Instructions: 1. If symptoms worsen please return to nearest emergency department. 2. Please follow up with PMD Dr. Mary Hilton within 7 days. 3. Please stop your old medication - Lotrel 2.5-10 QD; 4. Please start Lotrel 10-40 PO; Augmentin 875 PO QD 5. Continue home metformin 500 BID 6. Be sure to check blood pressure and heart rate daily at home and keep diary of results for PMD; if BP drops too low, notify PCP immediately. 7. Please check blood glucose levels since diet will change upon discharge as keep diary as above. Referrals: Ronnie Hilton MD [Primary Care Provider] - <Cristal Yañez - Last Filed: 05/11/18 12:22> Provider - Provider Date of Admission: 05/05/18 14:21 Attending physician: Cristal Yañez MD Primary care physician: Ronnie Hilton MD Hospital Course - Lab Results Lab Results: Micro Results 05/05/18 17:08 Blood Blood Culture - Final NO GROWTH AFTER 5 DAYS 05/05/18 17:08 Blood Gram Stain - Final TEST NOT PERFORMED 05/05/18 16:45 Blood Blood Culture - Final NO GROWTH AFTER 5 DAYS 05/05/18 16:45 Blood Gram Stain - Final TEST NOT PERFORMED 05/05/18 14:22 Urine Urine Culture - Final No Growth (<1,000 CFU/ML) Most Recent Lab Values WBC 10.2 10^3/ul (4.5-11.0) 05/10/18 06:00 RBC 3.37 10^6/uL (3.5-6.1) L 05/10/18 06:00 Hgb 9.9 g/dL (12.0-16.0) L 05/10/18 06:00 Hct 29.4 % (36.0-48.0) L 05/10/18 06:00 MCV 87.2 fl (80.0-105.0) 05/10/18 06:00 MCH 29.4 pg (25.0-35.0) 05/10/18 06:00 MCHC 33.7 g/dl (31.0-37.0) 05/10/18 06:00 RDW 14.1 % (11.5-14.5) 05/10/18 06:00 Plt Count 297 10^3/uL (120.0-450.0) 05/10/18 06:00 MPV 9.2 fl (7.0-11.0) 05/10/18 06:00 Gran % 76.7 % (50.0-68.0) H 05/10/18 06:00 Lymph % (Auto) 14.3 % (22.0-35.0) L 05/10/18 06:00 [place] % (Auto) 6.9 % (1.0-6.0) H 05/10/18 06:00 Eos % (Auto) 2.0 % (1.5-5.0) 05/10/18 06:00 Baso % (Auto) 0.1 % (0.0-3.0) 05/10/18 06:00 Gran # 7.81 (1.4-6.5) H 05/10/18 06:00 Lymph # (Auto) 1.5 (1.2-3.4) 05/10/18 06:00 [place] # (Auto) 0.7 (0.1-0.6) H 05/10/18 06:00 Eos # (Auto) 0.2 (0.0-0.7) 05/10/18 06:00 Baso # (Auto) 0.01 K/mm3 (0.0-2.0) 05/10/18 06:00 Neutrophils % (Manual) 89 % (50.0-70.0) H 05/05/18 10:20 Lymphocytes % (Manual) 5 % (22.0-35.0) L 05/05/18 10:20 Monocytes % (Manual) 6 % (1.0-6.0) 05/05/18 10:20 Platelet Evaluation Normal (NORMAL) 05/05/18 10:20 APTT 25.3 Seconds (25.1-36.5) 05/06/18 07:00 Sodium 140 mmol/L (132-148) 05/10/18 06:00 Potassium 4.1 mmol/L (3.6-5.0) 05/10/18 06:00 Chloride 107 mmol/L (98-107) 05/10/18 06:00 Carbon Dioxide 24 mmol/L (21-33) 05/10/18 06:00 Anion Gap 14 (10-20) 05/10/18 06:00 BUN 10 mg/dL (7-21) 05/10/18 06:00 Creatinine 0.6 mg/dl (0.7-1.2) L 05/10/18 06:00 Est GFR ( Amer) > 60 05/10/18 06:00 Est GFR (Non-Af Amer) > 60 05/10/18 06:00 POC Glucose (mg/dL) 166 mg/dL (65-110) H 05/10/18 06:37 Random Glucose 162 mg/dL (70-110) H 05/10/18 06:00 Hemoglobin A1c 6.9 % (4.2-6.5) H 05/07/18 16:46 Lactic Acid 1.4 mmol/L (0.7-2.1) 05/05/18 18:37 Calcium 8.7 mg/dL (8.4-10.5) 05/10/18 06:00 Magnesium 1.9 mg/dL (1.7-2.2) 05/05/18 10:20 Total Bilirubin 0.7 mg/dL (0.2-1.3) 05/10/18 06:00 AST 31 U/L (14-36) 05/10/18 06:00 ALT 27 U/L (7-56) 05/10/18 06:00 Alkaline Phosphatase 112 U/L (38-126) 05/10/18 06:00 Total Protein 6.5 g/dL (5.8-8.3) 05/10/18 06:00 Albumin 3.2 g/dL (3.0-4.8) 05/10/18 06:00 Globulin 3.3 gm/dL 05/10/18 06:00 Albumin/Globulin Ratio 1.0 (1.1-1.8) L 05/10/18 06:00 Lipase 24 U/L (23-300) 05/05/18 10:20 25-OH Vitamin D Total 21.1 NG/ML (30.0-100.0) L 05/07/18 06:00 Procalcitonin 1.12 NG/ML (0.19-0.49) H 05/05/18 17:08 TSH 3rd Generation 1.75 mIU/mL (0.46-4.68) 05/05/18 17:08 Urine Color Yellow (YELLOW) 05/05/18 14:22 Urine Appearance Clear (CLEAR) 05/05/18 14:22 Urine pH 6.0 (4.7-8.0) 05/05/18 14:22 Ur Specific [place] 1.020 (1.005-1.035) 05/05/18 14:22 Urine Protein 100 mg/dL (<30 mg/dL) H 05/05/18 14:22 Urine Glucose (UA) 100 mg/dL (NEGATIVE) H 05/05/18 14:22 Urine Ketones Negative mg/dL (NEGATIVE) 05/05/18 14:22 Urine Blood Moderate (NEGATIVE) H 05/05/18 14:22 Urine Nitrate Negative (NEGATIVE) 05/05/18 14:22 Urine Bilirubin Negative (NEGATIVE) 05/05/18 14:22 Urine Urobilinogen 0.2 E.U./dL (<1 E.U./dL) 05/05/18 14:22 Ur Leukocyte Esterase Negative Ian/uL (NEGATIVE) 05/05/18 14:22 Urine RBC 10 - 15 /hpf (0-2) 05/05/18 14:22 Urine WBC 0 - 2 /hpf (0-6) 05/05/18 14:22 Ur Epithelial Cells 4 - 5 /hpf (0-5) 05/05/18 14:22 Urine Bacteria Few (NEG) 05/05/18 14:22 Attending/Attestation - Attestation I have personally seen and examined this patient.: Yes I have fully participated in the care of the patient.: Yes I have reviewed all pertinent clinical information, including history, physical exam and plan: Yes Notes (Text): 07/11/18 12:18 Medical record note made by the resident after discussion with my direction and input after the patient was personally seen and examined by me. I have reviewed the chart and agree that the record accurately reflects by personal performance of the history, physical exam, data review, and medical decision-making, in the course for the patient. I have also personally directed the plan of care. 87 year old female with PMH of dementia, hypertension and diabetes was admitted with abdominal pain, fever 101, leukocytosis 16 and episode of fall at home. Chest X ray showed possible LLL pneumonia. However CT chest was negative for pneumonia. Procalcitonin was elevated. US abdomen showed cholelithiasis and equivocal for acute cholycystitis.Patient was treated with IV antibiotics, has responded well , she is afebrile, leukocytosis is resolved.HIDA scan yesterday was normal. Daughter is also aware and agrees with conservative care. CT and x ray imaging also showed bilateral sacral ala fractures, severe bone demineralization and osteoporotic compression fracture deformities, worse at L4. Orthopedics evaluation was appreciated who recommended conservative management. Blood pressure is better controlled with current medication. Daughter has refused NH placement.She is high risk for fall Prognosis is guarded. Patient will follow up with PMD . Management plan was discussed in detail with patient daughter who is at bed side. Education was provided.
[2018-05-10] MEDS ORDERED: Pantoprazole 40 mg EC Tab PO SCH (07:30)
[2018-05-10] MEDS: Insulin Reg-LOW-Coverage SC SCH (07:51)
[2018-05-10 08:10] VITALS: PULSE 85; TEMP 97; O2SAT 93
[2018-05-10] MEDS ORDERED: Amoxicillin-Clav 875-125 mg Tab PO SCH (09:07)
[2018-05-10 09:58] VITALS: BP 158/84
--- NOTE | 2018-05-10 10:08 | CP.PCM.PN ---
Subjective - Date & Time of Evaluation Date of Evaluation: 05/10/18 Time of Evaluation: 09:25 - Subjective Subjective: S&E at bedside, home oracle adf developer at bedside. Patient is arousable but appear tired. As per oracle adf developer patient did not sleep last night. Tolerating oral intake , no recent complaints of N/V or abdominal pain. Patient had HIDA scan yesterday that was negative. No acute overnight events reported. Reported to have Bm yesterday. No reports of bleeding. Objective - Vital Signs/Intake and Output Vital Signs (last 24 hours): Temp Pulse Resp BP Pulse Ox 97 F L 85 18 141/78 93 L 05/10/18 06:00 05/10/18 06:00 05/10/18 06:00 05/10/18 06:00 05/10/18 06:00 Intake and Output: 05/10/18 05/10/18 06:59 18:59 Intake Total 360 Balance 360 - Medications Medications: Current Medications Acetaminophen (Tylenol 650 Mg Supp) 650 mg RC Q4H PRN PRN Reason: Fever >100.4 F Last Admin: 05/06/18 18:44 Dose: 650 mg Amlodipine Besylate (Norvasc) 10 mg PO DAILY [facility] Amoxicillin/Clavulanate Potassium (Augmentin 875 Mg-125 Mg Tab) 1 tab PO Q12 MIHAI PRN Reason: Protocol Ergocalciferol (Drisdol 50,000 Intl Units Cap) 1 cap PO Q7D [facility] Last Admin: 05/08/18 12:05 Dose: 1 cap Heparin Sodium (Porcine) (Heparin) 5,000 units SC Q12 MIHAI PRN Reason: Protocol Last Admin: 05/09/18 21:06 Dose: 5,000 units Hydralazine HCl (Apresoline) 10 mg IVP Q6 PRN PRN Reason: Other Last Admin: 05/09/18 06:20 Dose: 10 mg Insulin Human Regular (Humulin R Low) 0 units SC ACHS MIHAI PRN Reason: Protocol Last Admin: 05/10/18 07:51 Dose: 1 units Lisinopril (Zestril) 40 mg PO DAILY [facility] Last Admin: 05/09/18 09:22 Dose: 40 mg Pantoprazole Sodium (Protonix Ec Tab) 40 mg PO ACB [facility] Last Admin: 07/10/18 07:53 Dose: 40 mg - Labs Labs: 05/10/18 06:00 05/10/18 06:00 APTT 25.3 Seconds (25.1-36.5) 05/06/18 07:00 - Constitutional Appears: No Acute Distress - Head Exam Head Exam: NORMOCEPHALIC - Eye Exam Eye Exam: Normal appearance. absent: Scleral icterus - ENT Exam ENT Exam: Mucous Membranes Moist - Neck Exam Neck Exam: Normal Inspection - Respiratory Exam Respiratory Exam: NORMAL BREATHING PATTERN. absent: Respiratory Distress - Cardiovascular Exam Cardiovascular Exam: +S1, +S2 - GI/Abdominal Exam GI & Abdominal Exam: Soft, Normal Bowel Sounds. absent: Distended, Guarding, Tenderness, Organomegaly, Rebound - Extremities Exam Extremities Exam: Normal Capillary Refill. absent: Calf Tenderness - Neurological Exam Neurological Exam: Altered (dementia), Awake - Skin Skin Exam: Dry, Warm Assessment and Plan - Assessment and Plan (Free Text) Assessment: Assessment: Abdominal pain, resolved Chronic constipation, having BM Cholelithiasis with questionable thickening of gallbladder wall. No pericholecystic fluid or significant inflammatory changes on abdominal US, HIDA scan negative for cystic duct obstruction Fever/Leukocytosis, resolved, unclear etiology, blood and urine cultures negative, no signs of cholecytitis Bilateral sacral fracture Small left pleural effusion Dementia DM PLAN: can take Miralax for consitpation, prn ,monitor stool, hold for stools>2/day diet as tolerated, on advanced bite size on oral Augmentin Patient's daughter prefers conservative management to be discharged home today on oral antibiotics. Seen and discussed with Dr. Retana.
--- NOTE | 2018-05-10 11:28 | CP.PCM.PN ---
Subjective - Date & Time of Evaluation Date of Evaluation: 05/10/18 Time of Evaluation: 10:20 - Subjective Subjective: No diarrhea, no fevers overnight, has some PO intake. Objective - Vital Signs/Intake and Output Vital Signs (last 24 hours): Temp Pulse Resp BP Pulse Ox 97 F L 85 18 141/78 93 L 05/10/18 06:00 05/10/18 06:00 05/10/18 06:00 05/10/18 06:00 05/10/18 06:00 Intake and Output: 05/10/18 05/10/18 06:59 18:59 Intake Total 360 Balance 360 - Medications Medications: Current Medications Acetaminophen (Tylenol 650 Mg Supp) 650 mg RC Q4H PRN PRN Reason: Fever >100.4 F Last Admin: 05/06/18 18:44 Dose: 650 mg Amlodipine Besylate (Norvasc) 10 mg PO DAILY [facility]PLAC[facility] BY [facility] Amoxicillin/Clavulanate Potassium (Augmentin 875 Mg-125 Mg Tab) 1 tab PO Q12 MIHAI PRN Reason: Protocol Ergocalciferol (Drisdol 50,000 Intl Units Cap) 1 cap PO Q7D [facility]PL[facility] Last Admin: 05/08/18 12:05 Dose: 1 cap Heparin Sodium (Porcine) (Heparin) 5,000 units SC Q12 MIHAI PRN Reason: Protocol Last Admin: 05/09/18 21:06 Dose: 5,000 units Hydralazine HCl (Apresoline) 10 mg IVP Q6 PRN PRN Reason: Other Last Admin: 05/09/18 06:20 Dose: 10 mg Insulin Human Regular (Humulin R Low) 0 units SC ACHS MIHAI PRN Reason: Protocol Last Admin: 05/10/18 07:51 Dose: 1 units Lisinopril (Zestril) 40 mg PO DAILY [facility] Last Admin: 05/09/18 09:22 Dose: 40 mg Pantoprazole Sodium (Protonix Ec Tab) 40 mg PO ACB [facility] Last Admin: 05/10/18 07:53 Dose: 40 mg - Labs Labs: 05/10/18 06:00 05/10/18 06:00 APTT 25.3 Seconds (25.1-36.5) 05/06/18 07:00 - Constitutional Appears: Chronically Ill - Head Exam Head Exam: NORMAL INSPECTION - Respiratory Exam Respiratory Exam: Decreased Breath Sounds - Cardiovascular Exam Cardiovascular Exam: +S1, +S2 - GI/Abdominal Exam GI & Abdominal Exam: Soft. absent: Tenderness Assessment and Plan - Assessment and Plan (Free Text) Plan: Assessment Systemic Inflammatory Response Syndrome with no evidence of acute cholecystitis with negative HIDA scan yesterday HTN DM dementia sacral ulcer which started in 2014 history of left hip decubitus ulcer history of urinary incontinence Plan on Rocephin day 5 - can switch to PO Augmentin to complete total 7-10 days of therapy; reviewed HIDA scan - ultrasound of abdomen showed GB wall thickening discussed with Dr. Yañez
[2018-05-11 13:40] LABS: ALDO/PRA RATIO 1.9 Ratio (0.9-28.9)
== END 2018-05-10 11:07 | disposition home or self-care (01) | DRG 445 ==
LOC: ED 08:29 → ERH 14:21 → 5RNO 18:06
PROVIDERS: ADMIT Internal Medicine; ATTEND Internal Medicine
DX: K80.20 Calculus of gallbladder without cholecystitis without obstruction (principal); R65.10 Systemic inflammatory response syndrome (SIRS) of non-infectious origin without acute organ dysfunction; M80.00XA Age-related osteoporosis with current pathological fracture, unspecified site, initial encounter for fracture; E87.0 Hyperosmolality and hypernatremia; J90 Pleural effusion, not elsewhere classified; M48.48XA Fatigue fracture of vertebra, sacral and sacrococcygeal region, initial encounter for fracture; N28.1 Cyst of kidney, acquired; I10 Essential (primary) hypertension; F02.80 Dementia in other diseases classified elsewhere, unspecified severity, without behavioral disturbance, psychotic disturbance, mood disturbance, and anxiety; E11.9 Type 2 diabetes mellitus without complications; I34.1 Nonrheumatic mitral (valve) prolapse; G30.9 Alzheimer's disease, unspecified; E87.6 Hypokalemia; F41.9 Anxiety disorder, unspecified; R32 Unspecified urinary incontinence; L89.321 Pressure ulcer of left buttock, stage 1; K59.00 Constipation, unspecified; L89.891 Pressure ulcer of other site, stage 1; Z96.649 Presence of unspecified artificial hip joint; K59.09 Other constipation; K64.4 Residual hemorrhoidal skin tags; D64.9 Anemia, unspecified; K76.0 Fatty (change of) liver, not elsewhere classified; Z80.0 Family history of malignant neoplasm of digestive organs; Z79.84 Long term (current) use of oral hypoglycemic drugs; Z86.010 Personal history of colon polyps